=== PATIENT | female | born 1940 | race Caucasian/White ===

== ENCOUNTER 2017-05-14 15:28 | Emergency (ER) | payer MEDICARE, MEDICAID ==
[~2017-05-14] VITALS: Ht 147.3 cm; Wt 72.0 kg
[~2017-05-14 15:28] MED LIST: AMIODARONE200 MG OR; AMLODIPINE5 MG PO; AMOXICILLIN500 MG OR; ANTIVERT25 MG PO; ASPIRIN 81 LOW81 MG PO; ASPIRIN OR; ASPIRIN325 MG PO; ASPIRIN81 MG OR; BABY ASPIRIN81 MG OR; BENICAR40 MG OR; CEPHALEXIN500 MG PO; CIPRO500 MG OR; CLARITIN10 MG OR; CLONAZEPAM0.5 MG OR; COREG12.5 MG OR; COREG25 MG OR; COREG25 MG PO; COREG6.25 MG OR; COUMADIN2 MG OR; COUMADIN2 MG PO; DIGITEK0.125 MG OR; DILTIAZEM60 MG PO; DIOVAN160 MG OR; DIOVAN160 MG PO; ECOTRIN325 MG OR; EQ OMEPRAZOLE20 MG PO; FISH OIL1000 MG PO; FLEXERIL OR; FLEXERIL PO; FLEXERIL5 MG PO; FLUOXETINE20 MG OR; FLUOXETINE20 MG PO; FLUTICASONE50 MCG; JANTOVEN2 MG OR; JANTOVEN2 MG PO; JANTOVEN4 MG OR; KEFLEX500 MG OR; KLOR-CON M2020 MEQ PO; LASIX 40 MG TAB40 MG PO; LISINOPRIL20 MG OR; LOPRESSOR50 MG OR; LORTAB 10 PO; LORTAB 5 PO; MAREPA1000 MG OR; MECLIZINE25 MG PO; MEDDOSEPAK OR; METO50TA52 OR; NITRO-DUR0.4 MG/HR SL; NITROQUICK0.4 MG SL; NORCO1 TA1 PO; OMEPRAZOLE20 MG OR; OMEPRAZOLE20 MG PO; OXYBUTYNIN5 MG PO; PERCOCET 5/325M1 TAB OR; PLAVIX75 MG OR; PRILOSEC20 MG OR; PRILOSEC20 MG PO; PRILOSEC20 MG/CAP PO; PROZAC20 MG OR; PROZAC20 MG PO; PYRIDIUM200 MG PO; ROBITUSSIN AC OR; ROBITUSSIN AC10 ML PO; SIMVASTATIN40 MG OR; SIMVASTATIN40 MG PO; TRAZODONE50 MG OR; TYLENOL # 31 TA1 PO; ULTRAM50 M1 PO; ULTRAM50 MG PO; ZOCOR40 MG OR; ZOFRAN ODT4 MG OR; ZOFRAN ODT4 MG PO; ZPAK PO
[2017-05-14] MEDS ORDERED: AMITRIPTYLIN10 MG PO (16:14)
[2017-05-14] MEDS ORDERED: BAYER ASA325 MG PO (16:16)
[2017-05-14 16:58] LABS: HEMATOCRIT 38.9 % (37.0-47.0); HEMOGLOBIN 12.2 g/dl (12.0-16.0); IMMATURE GRANULOCYTES 0.2 % (0.0-1.0); MEAN CELL VOLUME 88.6 fL CALC (80.0-100.0); MEAN CORPUSCULAR HGB 27.8 pG CALC (26.0-32.0); MEAN CORPUSCULAR HGB CONC 31.4 g/L CALC (32.0-36.0); NEUT# 5.86 thou/uL (2.00-7.15); RED BLOOD COUNT 4.39 mill/uL (4.20-5.60); RED CELL DISTRI WIDTH 15.1 % (11.5-15.5)
[2017-05-14] MEDS ORDERED: ULTRAM50 M1 PO (17:06)
[2017-05-14] MEDS ORDERED: AMOXICILLIN500 MG PO (17:06)
[2017-05-14 17:26] VITALS: BP 182/81
[2017-05-14 17:31] LABS: ALBUMIN 3.9 g/dL (3.2-5.0); ALKALINE PHOSPHATASE 88 u/l (38-126); ANION GAP 17 (6-22 (CALC)); BILIRUBIN, TOTAL 0.2 mg/dL (0.0-1.4); BUN 15 mg/dL (8-23); BUN/CREATININE RATIO 20 (12-20 (CALC)); CALCIUM 9.1 mg/dL (8.4-10.2); CARBON DIOXIDE 23 mmol/l (22-30); CHLORIDE 107 mmol/l (95-108); CREATININE 0.7 mg/dL (0.5-1.0); GFR > 60 ML/MIN (>=60 (CALC)); GFR FOR AFR.AMER. > 60 ML/MIN (>=60 (CALC)); GLUCOSE 109 mg/dL (82-115); POTASSIUM 3.5 mmol/l (3.5-5.1); SGOT/AST 31 u/l (9-36); SGPT/ALT 34 u/l (11-66); SODIUM 142 mmol/l (137-146); TOTAL PROTEIN 6.7 g/dL (6.3-8.2)
== END 2017-05-14 17:46 | disposition home or self-care (01) ==
LOC: ED 15:28
PROVIDERS: Emergency Medicine
PROC: 0HQDXZZ Repair Right Lower Arm Skin, External Approach (ICD-10-PCS; principal; 2017-05-14)
DX: S13.9XXA Sprain of joints and ligaments of unspecified parts of neck, initial encounter (principal); S33.5XXA Sprain of ligaments of lumbar spine, initial encounter; S23.3XXA Sprain of ligaments of thoracic spine, initial encounter; S51.811A Laceration without foreign body of right forearm, initial encounter; I10 Essential (primary) hypertension; K21.9 Gastro-esophageal reflux disease without esophagitis; J44.9 Chronic obstructive pulmonary disease, unspecified; F41.9 Anxiety disorder, unspecified; I11.0 Hypertensive heart disease with heart failure; I50.9 Heart failure, unspecified; E78.5 Hyperlipidemia, unspecified; W18.30XA Fall on same level, unspecified, initial encounter; Y92.009 Unspecified place in unspecified non-institutional (private) residence as the place of occurrence of the external cause; Z95.0 Presence of cardiac pacemaker; Z95.5 Presence of coronary angioplasty implant and graft

== ENCOUNTER 2017-06-29 11:36 | Emergency (ER) | payer MEDICARE, MEDICAID ==
[~2017-06-29] VITALS: Ht 147.3 cm; Wt 68.0 kg
[~2017-06-29 11:36] MED LIST changes: +AMITRIPTYLIN10 MG PO; +AMOXICILLIN500 MG PO; +BAYER ASA325 MG PO
[2017-06-29] MEDS ORDERED: BACTRIM DS1 TAB PO (12:45)
[2017-06-29] MEDS ORDERED: DOXYCYC MONO100 M1 PO (12:48)
[2017-06-29 13:25] VITALS: BP 149/82
== END 2017-06-29 13:30 | disposition home or self-care (01) ==
LOC: ED 11:36
DX: L03.115 Cellulitis of right lower limb (principal); S81.001A Unspecified open wound, right knee, initial encounter; K21.9 Gastro-esophageal reflux disease without esophagitis; J44.9 Chronic obstructive pulmonary disease, unspecified; F41.9 Anxiety disorder, unspecified; I11.0 Hypertensive heart disease with heart failure; I50.9 Heart failure, unspecified; E78.5 Hyperlipidemia, unspecified; W19.XXXA Unspecified fall, initial encounter; Z95.5 Presence of coronary angioplasty implant and graft; Z95.0 Presence of cardiac pacemaker; Z91.81 History of falling

== ENCOUNTER 2018-02-25 22:15 | Emergency (ER) | payer MEDICARE ==
[~2018-02-25] VITALS: Ht 147.3 cm; Wt 62.2 kg
[~2018-02-25 22:15] MED LIST changes: +BACTRIM DS1 TAB PO; +DOXYCYC MONO100 M1 PO
[2018-02-25] MEDS ORDERED: ULTRAM50 M1 PO (22:28)
[2018-02-26 00:40] VITALS: BP 152/78
== END 2018-02-26 00:45 | disposition home or self-care (01) ==
LOC: ED 22:15
DX: S20.212A Contusion of left front wall of thorax, initial encounter (principal); W18.30XA Fall on same level, unspecified, initial encounter; Y93.9 Activity, unspecified; Y92.002 Bathroom of unspecified non-institutional (private) residence as the place of occurrence of the external cause; M85.88 Other specified disorders of bone density and structure, other site

== ENCOUNTER 2018-05-18 20:50 | Observation (INO) | payer MEDICARE ==
[~2018-05-18] VITALS: Ht 147.3 cm; Wt 69.0 kg
[2018-05-18 21:18] LABS: HEMATOCRIT 36.5 % (37.0-47.0); HEMOGLOBIN 12.1 g/dl (12.0-16.0); IMMATURE GRANULOCYTES 0.4 % (0.0-1.0); MEAN CELL VOLUME 84.5 fL CALC (80.0-100.0); MEAN CORPUSCULAR HGB CONC 33.2 g/L CALC (32.0-36.0); NEUT# 5.35 thou/uL (2.00-7.15); RED BLOOD COUNT 4.32 mill/uL (4.20-5.60); RED CELL DISTRI WIDTH 14.1 % (11.5-15.5)
[2018-05-18 21:40] LABS: ALKALINE PHOSPHATASE 120 u/l (38-126); BILIRUBIN, TOTAL 0.3 mg/dL (0.0-1.4); BUN 12 mg/dL (8-23); BUN/CREATININE RATIO 17 (12-20 (CALC)); CHLORIDE 102 mmol/l (95-108); CREATININE 0.7 mg/dL (0.5-1.0); GFR > 60 ML/MIN (>=60 (CALC)); GFR FOR AFR.AMER. > 60 ML/MIN (>=60 (CALC)); SGOT/AST 27 u/l (9-36); SGPT/ALT 31 u/l (11-66); SODIUM 142 mmol/l (137-146); TOTAL PROTEIN 7.2 g/dL (6.3-8.2)
[2018-05-18 21:44] LABS: ANION GAP 13 (6-22 (CALC)); CARBON DIOXIDE 30 mmol/l (22-30)
[2018-05-18 21:51] LABS: INTERNATIONAL NORMALIZED RATIO 2.2 RATIO (0.7-1.3); PROTHROMBIN TIME 25.3 SECONDS (9.0-12.5)
[2018-05-18 21:52] LABS: MYOGLOBIN 35 ng/mL (0 - 62)
[2018-05-18 22:13] LABS: URINE BILIRUBIN - DIPSTICK NEGATIVE (NEGATIVE); URINE BLOOD DIPSTICK MODERATE (NEGATIVE); URINE COLOR YELLOW; URINE GLUCOSE - DIPSTICK NEGATIVE (NEGATIVE); URINE KETONE NEGATIVE (NEGATIVE); URINE NITRITE - DIPSTICK NEGATIVE (Negative); URINE PH 5.5 (4.5-8.0); URINE PROTEIN - DIPSTICK NEGATIVE (NEG-TRACE); URINE UROBILINOGEN - DIPSTICK 0.2 E.U./dL (0.2)
[2018-05-18 22:14] LABS: URINE CLARITY CLOUDY; URINE LEUK ESTERASE LARGE (NEGATIVE)
[2018-05-18 22:19] LABS: URINE BACTERIA MANY hpf; URINE RBC 25-50 RBC/hpf (0-5); URINE SQUAMOUS EPITHELIAL CELL FEW EPI/hpf (0-FEW); URINE WBC TNTC WBC/hpf (0-5)
[2018-05-19] VITALS (8 sets, daily range): BP systolic 113–200; BP diastolic 60–82
[2018-05-19 06:26] LABS: BUN 12 mg/dL (8-23); BUN/CREATININE RATIO 16 (12-20 (CALC)); CARBON DIOXIDE 33 mmol/l (22-30); CHLORIDE 102 mmol/l (95-108); CREATININE 0.7 mg/dL (0.5-1.0); GFR > 60 ML/MIN (>=60 (CALC)); GFR FOR AFR.AMER. > 60 ML/MIN (>=60 (CALC)); SODIUM 141 mmol/l (137-146)
[2018-05-19 06:33] LABS: ANION GAP 10 (6-22 (CALC)); POTASSIUM 3.7 mmol/l (3.5-5.1)
[2018-05-20 03:54] VITALS: BP 116/67
[2018-05-20 04:47] LABS: HEMATOCRIT 34.2 % (37.0-47.0); HEMOGLOBIN 11.1 g/dl (12.0-16.0); IMMATURE GRANULOCYTES 0.3 % (0.0-1.0); MEAN CELL VOLUME 86.4 fL CALC (80.0-100.0); MEAN CORPUSCULAR HGB CONC 32.5 g/L CALC (32.0-36.0); NEUT# 3.3 thou/uL (2.00-7.15); RED BLOOD COUNT 3.96 mill/uL (4.20-5.60); RED CELL DISTRI WIDTH 14.6 % (11.5-15.5)
[2018-05-20 05:01] LABS: PROTHROMBIN TIME 22.1 SECONDS (9.0-12.5)
[2018-05-20 05:04] LABS: ANION GAP 12 (6-22 (CALC)); BUN 16 mg/dL (8-23); BUN/CREATININE RATIO 21 (12-20 (CALC)); CARBON DIOXIDE 27 mmol/l (22-30); CHLORIDE 105 mmol/l (95-108); CREATININE 0.8 mg/dL (0.5-1.0); GFR > 60 ML/MIN (>=60 (CALC)); GFR FOR AFR.AMER. > 60 ML/MIN (>=60 (CALC)); MAGNESIUM 1.6 mg/dL (1.6-2.3); POTASSIUM 3.4 mmol/l (3.5-5.1); SODIUM 141 mmol/l (137-146)
[2018-05-20 07:43] VITALS: BP 158/84; BP 165/84
[2018-05-20 11:00] VITALS: BP 136/72
[2018-05-20 12:43] VITALS: BP 125/61; BP 130/59; BP 136/55
[2018-05-20] MEDS ORDERED: KEFLEX500 M1 PO (14:19)
== END 2018-05-20 14:58 | disposition home or self-care (01) ==
LOC: ED 20:50 → ED-I 23:00 → ED 23:29 → MS2 23:30
PROVIDERS: Family Medicine; Nurse Practitioner Family; ADMIT Internal Medicine; ATTEND Internal Medicine
DX: N39.0 Urinary tract infection, site not specified (principal); I16.0 Hypertensive urgency; I10 Essential (primary) hypertension; E87.6 Hypokalemia; G93.49 Other encephalopathy; F32.9 Major depressive disorder, single episode, unspecified; K21.9 Gastro-esophageal reflux disease without esophagitis; I48.91 Unspecified atrial fibrillation; I25.10 Atherosclerotic heart disease of native coronary artery without angina pectoris; I42.9 Cardiomyopathy, unspecified; J44.9 Chronic obstructive pulmonary disease, unspecified; D63.8 Anemia in other chronic diseases classified elsewhere; B96.20 Unspecified Escherichia coli [E. coli] as the cause of diseases classified elsewhere; Z95.0 Presence of cardiac pacemaker; Z79.01 Long term (current) use of anticoagulants; Z91.81 History of falling; E78.5 Hyperlipidemia, unspecified; Z95.5 Presence of coronary angioplasty implant and graft; Z96.641 Presence of right artificial hip joint

== ENCOUNTER 2018-05-22 17:49 | Inpatient (IN) | payer MEDICARE ==
[~2018-05-22] VITALS: Ht 147.3 cm; Wt 70.0 kg
[~2018-05-22 17:49] MED LIST changes: +KEFLEX500 M1 PO
[2018-05-22] MEDS ORDERED: CIPROFLOXACN500 MG PO (18:56)
[2018-05-22] MEDS ORDERED: BENADRYL 50MG C50 MG PO (18:56)
[2018-05-22] MEDS ORDERED: MEDDOSEPAK PO (18:56)
[2018-05-22] MEDS ORDERED: PEPCID20 MG PO (18:56)
[2018-05-22 19:36] LABS: HEMATOCRIT 38.2 % (37.0-47.0); HEMOGLOBIN 12.3 g/dl (12.0-16.0); IMMATURE GRANULOCYTES 0.4 % (0.0-1.0); MEAN CELL VOLUME 85.5 fL CALC (80.0-100.0); MEAN CORPUSCULAR HGB 27.5 pG CALC (26.0-32.0); MEAN CORPUSCULAR HGB CONC 32.2 g/L CALC (32.0-36.0); NEUT# 11.41 thou/uL (2.00-7.15); RED BLOOD COUNT 4.47 mill/uL (4.20-5.60); RED CELL DISTRI WIDTH 14.4 % (11.5-15.5)
[2018-05-22 19:51] LABS: ALBUMIN 4.2 g/dL (3.2-5.0); ALKALINE PHOSPHATASE 122 u/l (38-126); ANION GAP 11 (6-22 (CALC)); BILIRUBIN, TOTAL 0.5 mg/dL (0.0-1.4); BUN 17 mg/dL (8-23); BUN/CREATININE RATIO 22 (12-20 (CALC)); CARBON DIOXIDE 29 mmol/l (22-30); CHLORIDE 102 mmol/l (95-108); CREATININE 0.8 mg/dL (0.5-1.0); GFR > 60 ML/MIN (>=60 (CALC)); GFR FOR AFR.AMER. > 60 ML/MIN (>=60 (CALC)); POTASSIUM 3.4 mmol/l (3.5-5.1); SGOT/AST 28 u/l (9-36); SGPT/ALT 34 u/l (11-66); SODIUM 139 mmol/l (137-146); TOTAL PROTEIN 7.5 g/dL (6.3-8.2)
[2018-05-22 19:56] LABS: ACT PARTIAL THROMBO TIME 33.6 SECONDS (20.0-32.5); INTERNATIONAL NORMALIZED RATIO 1.6 RATIO (0.7-1.3); PROTHROMBIN TIME 18.5 SECONDS (9.0-12.5)
[2018-05-22 20:03] LABS: MYOGLOBIN 87 ng/mL (0 - 62)
[2018-05-22 20:58] LABS: URINE BILIRUBIN - DIPSTICK NEGATIVE (NEGATIVE); URINE BLOOD DIPSTICK SMALL (NEGATIVE); URINE COLOR YELLOW; URINE GLUCOSE - DIPSTICK NEGATIVE (NEGATIVE); URINE KETONE NEGATIVE (NEGATIVE); URINE LEUK ESTERASE NEGATIVE (Negative); URINE NITRITE - DIPSTICK NEGATIVE (Negative); URINE PH 5.5 (4.5-8.0); URINE PROTEIN - DIPSTICK NEGATIVE (NEG-TRACE); URINE SPECIFIC GRAVITY <=1.005; URINE UROBILINOGEN - DIPSTICK 0.2 E.U./dL (0.2)
[2018-05-22 21:00] LABS: URINE CLARITY CLEAR
[2018-05-22 21:07] LABS: URINE SQUAMOUS EPITHELIAL CELL FEW EPI/hpf (0-FEW); URINE WBC 0-2 WBC/hpf (0-5)
[2018-05-22 22:20] VITALS: BP 168/71
[2018-05-23] VITALS (8 sets, daily range): BP systolic 132–171; BP diastolic 60–87
[2018-05-23 05:06] LABS: HEMATOCRIT 36.8 % (37.0-47.0); HEMOGLOBIN 12.1 g/dl (12.0-16.0); MEAN CELL VOLUME 84.2 fL CALC (80.0-100.0); MEAN CORPUSCULAR HGB 27.7 pG CALC (26.0-32.0); MEAN CORPUSCULAR HGB CONC 32.9 g/L CALC (32.0-36.0); RED BLOOD COUNT 4.37 mill/uL (4.20-5.60); RED CELL DISTRI WIDTH 14.3 % (11.5-15.5)
[2018-05-23 05:16] LABS: ANION GAP 14 (6-22 (CALC)); BUN 15 mg/dL (8-23); BUN/CREATININE RATIO 22 (12-20 (CALC)); CARBON DIOXIDE 24 mmol/l (22-30); CHLORIDE 105 mmol/l (95-108); CREATININE 0.7 mg/dL (0.5-1.0); GFR > 60 ML/MIN (>=60 (CALC)); GFR FOR AFR.AMER. > 60 ML/MIN (>=60 (CALC)); POTASSIUM 3.4 mmol/l (3.5-5.1); SODIUM 139 mmol/l (137-146)
[2018-05-24 04:09] VITALS: BP 156/76
[2018-05-24 05:36] LABS: HEMATOCRIT 32.7 % (37.0-47.0); HEMOGLOBIN 10.5 g/dl (12.0-16.0); IMMATURE GRANULOCYTES 1.1 % (0.0-1.0); MEAN CELL VOLUME 87.7 fL CALC (80.0-100.0); MEAN CORPUSCULAR HGB 28.2 pG CALC (26.0-32.0); MEAN CORPUSCULAR HGB CONC 32.1 g/L CALC (32.0-36.0); NEUT# 18.8 thou/uL (2.00-7.15); RED BLOOD COUNT 3.73 mill/uL (4.20-5.60); RED CELL DISTRI WIDTH 14.9 % (11.5-15.5)
[2018-05-24 05:40] LABS: ANION GAP 12 (6-22 (CALC)); BUN 16 mg/dL (8-23); BUN/CREATININE RATIO 22 (12-20 (CALC)); CARBON DIOXIDE 24 mmol/l (22-30); CHLORIDE 110 mmol/l (95-108); CREATININE 0.7 mg/dL (0.5-1.0); GFR > 60 ML/MIN (>=60 (CALC)); GFR FOR AFR.AMER. > 60 ML/MIN (>=60 (CALC)); MAGNESIUM 1.7 mg/dL (1.6-2.3); POTASSIUM 3.9 mmol/l (3.5-5.1); SODIUM 142 mmol/l (137-146)
[2018-05-24 07:00] LABS: INTERNATIONAL NORMALIZED RATIO 1.5 RATIO (0.7-1.3); PROTHROMBIN TIME 16.6 SECONDS (9.0-12.5)
[2018-05-24 08:00] VITALS: BP 162/76
[2018-05-24 12:30] VITALS: BP 161/67
[2018-05-24 15:56] VITALS: BP 152/86
[2018-05-24 18:55] VITALS: BP 170/66
[2018-05-24 22:29] VITALS: BP 152/53
[2018-05-25 00:35] VITALS: BP 174/87
[2018-05-25 03:56] VITALS: BP 138/72
[2018-05-25 06:11] LABS: HEMATOCRIT 32.3 % (37.0-47.0); HEMOGLOBIN 10.6 g/dl (12.0-16.0); MEAN CORPUSCULAR HGB 27.9 pG CALC (26.0-32.0); MEAN CORPUSCULAR HGB CONC 32.8 g/L CALC (32.0-36.0); RED BLOOD COUNT 3.8 mill/uL (4.20-5.60); RED CELL DISTRI WIDTH 14.9 % (11.5-15.5)
[2018-05-25 06:29] LABS: BUN 13 mg/dL (8-23); BUN/CREATININE RATIO 19 (12-20 (CALC)); CARBON DIOXIDE 29 mmol/l (22-30); CHLORIDE 101 mmol/l (95-108); CREATININE 0.7 mg/dL (0.5-1.0); GFR > 60 ML/MIN (>=60 (CALC)); GFR FOR AFR.AMER. > 60 ML/MIN (>=60 (CALC)); SODIUM 139 mmol/l (137-146)
[2018-05-25 06:30] LABS: ANION GAP 12 (6-22 (CALC))
[2018-05-25 06:33] LABS: INTERNATIONAL NORMALIZED RATIO 1.6 RATIO (0.7-1.3); PROTHROMBIN TIME 17.7 SECONDS (9.0-12.5)
[2018-05-25 08:20] VITALS: BP 153/68
[2018-05-25 11:21] VITALS: BP 145/72
[2018-05-25] MEDS ORDERED: CIPROFLOXACN500 MG PO (12:44)
[2018-05-25] MEDS ORDERED: QUETIAPINE FUMA25 MG PO (12:44)
== END 2018-05-25 14:30 | disposition home health service (06) | DRG 689 ==
LOC: ED 17:49 → ED-I 21:08 → ED 21:30 → MS2 21:31
PROVIDERS: Nurse Practitioner Family; ADMIT Internal Medicine; ATTEND Internal Medicine
DX: N39.0 Urinary tract infection, site not specified (principal); G93.49 Other encephalopathy; I42.9 Cardiomyopathy, unspecified; I10 Essential (primary) hypertension; E87.6 Hypokalemia; I48.2 Chronic atrial fibrillation; F03.90 Unspecified dementia, unspecified severity, without behavioral disturbance, psychotic disturbance, mood disturbance, and anxiety; L50.0 Allergic urticaria; T36.1X5A Adverse effect of cephalosporins and other beta-lactam antibiotics, initial encounter; F32.9 Major depressive disorder, single episode, unspecified; K21.9 Gastro-esophageal reflux disease without esophagitis; E78.5 Hyperlipidemia, unspecified; D63.8 Anemia in other chronic diseases classified elsewhere; F41.9 Anxiety disorder, unspecified; I25.10 Atherosclerotic heart disease of native coronary artery without angina pectoris; H91.90 Unspecified hearing loss, unspecified ear; B96.20 Unspecified Escherichia coli [E. coli] as the cause of diseases classified elsewhere; Z86.73 Personal history of transient ischemic attack (TIA), and cerebral infarction without residual deficits; Z79.01 Long term (current) use of anticoagulants; Z91.81 History of falling; Z95.0 Presence of cardiac pacemaker; Z95.5 Presence of coronary angioplasty implant and graft
CPT/HCPCS: J2060

== ENCOUNTER 2018-06-02 20:45 | Emergency (ER) | payer MEDICARE ==
[~2018-06-02] VITALS: Ht 147.3 cm; Wt 70.0 kg
[~2018-06-02 20:45] MED LIST changes: +BENADRYL 50MG C50 MG PO; +CIPROFLOXACN500 MG PO; +MEDDOSEPAK PO; +PEPCID20 MG PO; +QUETIAPINE FUMA25 MG PO
[2018-06-02 21:44] LABS: HEMATOCRIT 35.7 % (37.0-47.0); HEMOGLOBIN 11.6 g/dl (12.0-16.0); IMMATURE GRANULOCYTES 0.4 % (0.0-1.0); MEAN CELL VOLUME 85.4 fL CALC (80.0-100.0); MEAN CORPUSCULAR HGB 27.8 pG CALC (26.0-32.0); MEAN CORPUSCULAR HGB CONC 32.5 g/L CALC (32.0-36.0); NEUT# 2.53 thou/uL (2.00-7.15); RED BLOOD COUNT 4.18 mill/uL (4.20-5.60); RED CELL DISTRI WIDTH 14.5 % (11.5-15.5)
[2018-06-02 21:57] LABS: ALKALINE PHOSPHATASE 115 u/l (38-126); ANION GAP 11 (6-22 (CALC)); BILIRUBIN, TOTAL 0.2 mg/dL (0.0-1.4); BUN 13 mg/dL (8-23); BUN/CREATININE RATIO 13 (12-20 (CALC)); CARBON DIOXIDE 31 mmol/l (22-30); CHLORIDE 100 mmol/l (95-108); GFR 53 ML/MIN (>=60 (CALC)); GFR FOR AFR.AMER. > 60 ML/MIN (>=60 (CALC)); POTASSIUM 3.6 mmol/l (3.5-5.1); SGOT/AST 36 u/l (9-36); SGPT/ALT 40 u/l (11-66); SODIUM 139 mmol/l (137-146); TOTAL PROTEIN 7.5 g/dL (6.3-8.2)
[2018-06-02 22:00] LABS: INTERNATIONAL NORMALIZED RATIO 1.6 RATIO (0.7-1.3); PROTHROMBIN TIME 18.5 SECONDS (9.0-12.5)
--- NOTE | 2018-06-02 22:08 | NUR ---
BREATHING TREATMENT GIVEN. BREATHING TECH. FOR GOOD DEPOSITION TO THE LUNGS.
[2018-06-02] MEDS ORDERED: VENTOLIN HFA IN (22:48)
[2018-06-02] MEDS ORDERED: PREDNISONE10 MG PO (22:48)
[2018-06-02 23:20] VITALS: BP 175/79
== END 2018-06-02 23:20 | disposition home or self-care (01) ==
LOC: ED 20:45
PROVIDERS: Family Medicine
DX: J98.01 Acute bronchospasm (principal); I10 Essential (primary) hypertension; I48.91 Unspecified atrial fibrillation; F32.9 Major depressive disorder, single episode, unspecified; K21.9 Gastro-esophageal reflux disease without esophagitis; E78.00 Pure hypercholesterolemia, unspecified; Z86.73 Personal history of transient ischemic attack (TIA), and cerebral infarction without residual deficits; Z95.0 Presence of cardiac pacemaker; R06.02 Shortness of breath

== ENCOUNTER 2018-07-25 18:06 | Emergency (ER) | payer MEDICARE ==
[~2018-07-25] VITALS: Ht 147.3 cm; Wt 75.0 kg
[~2018-07-25 18:06] MED LIST changes: +PREDNISONE10 MG PO; +VENTOLIN HFA IN
[2018-07-25 19:53] LABS: HEMATOCRIT 36.7 % (37.0-47.0); HEMOGLOBIN 12.1 g/dl (12.0-16.0); IMMATURE GRANULOCYTES 0.2 % (0.0-5.0); MEAN CELL VOLUME 84.4 fL CALC (80.0-100.0); MEAN CORPUSCULAR HGB 27.8 pG CALC (26.0-32.0); NEUT# 3.03 thou/uL (2.00-7.15); RED BLOOD COUNT 4.35 mill/uL (4.20-5.60)
[2018-07-25 20:01] LABS: ALBUMIN 3.9 g/dL (3.2-5.0); ALKALINE PHOSPHATASE 120 u/l (38-126); ANION GAP 14 (6-22 (CALC)); BILIRUBIN, TOTAL 0.2 mg/dL (0.0-1.4); BUN 13 mg/dL (8-23); BUN/CREATININE RATIO 15 (12-20 (CALC)); CARBON DIOXIDE 26 mmol/l (22-30); CHLORIDE 104 mmol/l (95-108); CREATININE 0.8 mg/dL (0.5-1.0); GFR > 60 ML/MIN (>=60 (CALC)); GFR FOR AFR.AMER. > 60 ML/MIN (>=60 (CALC)); POTASSIUM 3.3 mmol/l (3.5-5.1); SGOT/AST 29 u/l (9-36); SGPT/ALT 30 u/l (11-66); SODIUM 141 mmol/l (137-146); TOTAL PROTEIN 6.8 g/dL (6.3-8.2)
[2018-07-25 21:15] LABS: URINE BILIRUBIN - DIPSTICK NEGATIVE (NEGATIVE); URINE BLOOD DIPSTICK SMALL (NEGATIVE); URINE CLARITY CLEAR; URINE COLOR YELLOW; URINE GLUCOSE - DIPSTICK NEGATIVE (NEGATIVE); URINE KETONE NEGATIVE (NEGATIVE); URINE LEUK ESTERASE NEGATIVE (NEGATIVE); URINE NITRITE - DIPSTICK NEGATIVE (Negative); URINE PROTEIN - DIPSTICK NEGATIVE (NEG-TRACE); URINE SPECIFIC GRAVITY <=1.005; URINE UROBILINOGEN - DIPSTICK 0.2 E.U./dL (0.2)
[2018-07-25 21:16] LABS: URINE SQUAMOUS EPITHELIAL CELL FEW EPI/hpf (0-FEW); URINE WBC 0-2 WBC/hpf (0-5)
[2018-07-25] MEDS ORDERED: CIPROFLOXACN500 MG PO (21:37)
[2018-07-25 23:11] VITALS: BP 151/84
== END 2018-07-25 23:30 | disposition home or self-care (01) ==
LOC: ED 18:06
PROVIDERS: Emergency Medicine
DX: N39.0 Urinary tract infection, site not specified (principal); I10 Essential (primary) hypertension; I48.91 Unspecified atrial fibrillation; F32.9 Major depressive disorder, single episode, unspecified; K21.9 Gastro-esophageal reflux disease without esophagitis; Z86.73 Personal history of transient ischemic attack (TIA), and cerebral infarction without residual deficits; Z95.0 Presence of cardiac pacemaker

== ENCOUNTER 2018-08-31 18:20 | Emergency (ER) | payer MEDICARE ==
[~2018-08-31] VITALS: Ht 147.3 cm; Wt 66.0 kg
[2018-08-31] MEDS ORDERED: ZOLOFT50 MG PO (20:49)
[2018-08-31 21:50] VITALS: BP 177/68
== END 2018-08-31 21:50 | disposition home or self-care (01) ==
LOC: ED 18:20
DX: S40.012A Contusion of left shoulder, initial encounter (principal); S50.312A Abrasion of left elbow, initial encounter; I10 Essential (primary) hypertension; I48.91 Unspecified atrial fibrillation; F03.90 Unspecified dementia, unspecified severity, without behavioral disturbance, psychotic disturbance, mood disturbance, and anxiety; K21.9 Gastro-esophageal reflux disease without esophagitis; F32.9 Major depressive disorder, single episode, unspecified; W01.0XXA Fall on same level from slipping, tripping and stumbling without subsequent striking against object, initial encounter; Y92.009 Unspecified place in unspecified non-institutional (private) residence as the place of occurrence of the external cause; Z95.0 Presence of cardiac pacemaker

== ENCOUNTER → 2019-01-21 | Outpatient (REF) | payer MEDICARE ==
[~2019-01-21] MED LIST changes: +ZOLOFT50 MG PO
[2019-01-21 16:30] LABS: HEMATOCRIT 35.6 % (37.0-47.0); HEMOGLOBIN 11.4 g/dl (12.0-16.0); IMMATURE GRANULOCYTES 0.3 % (0.0-5.0); MEAN CELL VOLUME 85.2 fL CALC (80.0-100.0); MEAN CORPUSCULAR HGB 27.3 pG CALC (26.0-32.0); NEUT# 5.04 thou/uL (2.00-7.15); RED BLOOD COUNT 4.18 mill/uL (4.20-5.60); RED CELL DISTRI WIDTH 14.5 % (11.5-15.5)
[2019-01-21 16:54] LABS: ALBUMIN 3.8 g/dL (3.2-5.0); BILIRUBIN, TOTAL 0.2 mg/dL (0.0-1.4); CREATININE 1.6 mg/dL (0.5-1.0); POTASSIUM 3.2 mmol/l (3.5-5.1); TOTAL PROTEIN 6.4 g/dL (6.3-8.2)
[2019-01-21 17:24] LABS: TSH, 3RD GENERATION 4.07 uIU/mL (0.47 - 4.68)
== END | disposition home or self-care (01) ==
LOC: LAB 15:18
PROVIDERS: ATTEND Internal Medicine
DX: I10 Essential (primary) hypertension (principal); R19.7 Diarrhea, unspecified

== ENCOUNTER → 2019-01-22 | Outpatient (REF) | payer MEDICARE ==
[2019-01-22 11:01] LABS: URINE BILIRUBIN - DIPSTICK NEGATIVE (NEGATIVE); URINE BLOOD DIPSTICK TRACE-INTACT (NEGATIVE); URINE COLOR YELLOW; URINE GLUCOSE - DIPSTICK NEGATIVE (NEGATIVE); URINE KETONE NEGATIVE (NEGATIVE); URINE LEUK ESTERASE MODERATE (Negative); URINE NITRITE - DIPSTICK NEGATIVE (Negative); URINE PROTEIN - DIPSTICK NEGATIVE (NEG-TRACE); URINE SPECIFIC GRAVITY >=1.030; URINE UROBILINOGEN - DIPSTICK 0.2 E.U./dL (0.2)
[2019-01-22 11:08] LABS: URINE CLARITY CLOUDY
[2019-01-22 11:09] LABS: URINE BACTERIA MANY hpf; URINE EPITHELIAL CELLS FEW EPI/hpf (0-FEW)
== END | disposition home or self-care (01) ==
LOC: LABSPEC 10:18
PROVIDERS: ATTEND Internal Medicine
DX: R19.7 Diarrhea, unspecified (principal); I10 Essential (primary) hypertension

== ENCOUNTER 2020-08-05 20:13 | Emergency (ER) | payer MEDICARE ==
[~2020-08-05] VITALS: Ht 147.3 cm; Wt 66.8 kg
[2020-08-05] MEDS ORDERED: MICRO-K10 MEQ PO (20:36)
[2020-08-05] MEDS ORDERED: SLOW-MAG PO (20:36)
[2020-08-05] MEDS ORDERED: BUSPIRONE7.5 MG PO (20:37)
[2020-08-05 21:46] LABS: HEMATOCRIT 36.1 % (37.0-47.0); HEMOGLOBIN 11.2 g/dl (12.0-16.0); IMMATURE GRANULOCYTES 0.3 % (0.0-5.0); MEAN CELL VOLUME 86.8 fL CALC (80.0-100.0); MEAN CORPUSCULAR HGB 26.9 pG CALC (26.0-32.0); NEUT# 3.22 thou/uL (2.00-7.15); RED BLOOD COUNT 4.16 mill/uL (4.20-5.60); RED CELL DISTRI WIDTH 14.6 % (11.5-15.5)
[2020-08-05 21:52] LABS: URINE BILIRUBIN - DIPSTICK NEGATIVE (NEGATIVE); URINE BLOOD DIPSTICK SMALL (NEGATIVE); URINE COLOR YELLOW; URINE GLUCOSE - DIPSTICK NEGATIVE (NEGATIVE); URINE KETONE NEGATIVE (NEGATIVE); URINE NITRITE - DIPSTICK NEGATIVE (Negative); URINE PROTEIN - DIPSTICK NEGATIVE (NEG-TRACE); URINE SPECIFIC GRAVITY 1.025; URINE UROBILINOGEN - DIPSTICK 0.2 E.U./dL (0.2)
[2020-08-05 21:53] LABS: URINE LEUK ESTERASE SMALL (NEGATIVE)
[2020-08-05 22:00] LABS: URINE BACTERIA MODERATE hpf; URINE SQUAMOUS EPITHELIAL CELL FEW EPI/hpf (0-FEW)
[2020-08-05 22:01] LABS: INTERNATIONAL NORMALIZED RATIO 2.3 RATIO (0.7-1.3); PROTHROMBIN TIME 22.1 SECONDS (9.0-12.5)
[2020-08-05 22:06] LABS: ALBUMIN 3.7 g/dL (3.2-5.0); ALKALINE PHOSPHATASE 95 u/l (38-126); BILIRUBIN, TOTAL 0.3 mg/dL (0.0-1.4); BUN 19 mg/dL (8-23); BUN/CREATININE RATIO 24 (12-20 (CALC)); CHLORIDE 108 mmol/l (95-108); CREATININE 0.8 mg/dL (0.5-1.0); GFR > 60 ML/MIN (>=60 (CALC)); GFR FOR AFR.AMER. > 60 ML/MIN (>=60 (CALC)); POTASSIUM 3.6 mmol/l (3.5-5.1); SGOT/AST 26 u/l (9-36); SODIUM 139 mmol/l (137-146); TOTAL PROTEIN 6.4 g/dL (6.3-8.2)
[2020-08-05 22:07] LABS: ANION GAP 12 (6-22 (CALC)); CARBON DIOXIDE 23 mmol/l (22-30)
[2020-08-05 22:17] LABS: MYOGLOBIN 26 ng/mL (0 - 62)
[2020-08-05 22:35] LABS: TSH, 3RD GENERATION 5.57 uIU/mL (0.47 - 4.68)
[2020-08-05] MEDS ORDERED: BACTRIM DS1 TAB PO ×2 (22:39)
[2020-08-05 23:18] VITALS: BP 172/77
== END 2020-08-06 01:12 | disposition home or self-care (01) ==
LOC: ED 20:13
PROVIDERS: Family Medicine
DX: N39.0 Urinary tract infection, site not specified (principal); G93.49 Other encephalopathy; I10 Essential (primary) hypertension; I48.91 Unspecified atrial fibrillation; B96.20 Unspecified Escherichia coli [E. coli] as the cause of diseases classified elsewhere; Z95.0 Presence of cardiac pacemaker; Z86.73 Personal history of transient ischemic attack (TIA), and cerebral infarction without residual deficits; Z20.828 Contact with and (suspected) exposure to other viral communicable diseases

== ENCOUNTER 2020-08-13 19:40 | Emergency (ER) | payer MEDICARE ==
[~2020-08-13] VITALS: Ht 147.3 cm; Wt 65.9 kg
[~2020-08-13 19:40] MED LIST changes: +BUSPIRONE7.5 MG PO; +MICRO-K10 MEQ PO; +SLOW-MAG PO
[2020-08-14 00:40] VITALS: BP 172/73
== END 2020-08-14 01:01 ==
LOC: ED 19:40
DX: S12.200A Unspecified displaced fracture of third cervical vertebra, initial encounter for closed fracture (principal); S00.83XA Contusion of other part of head, initial encounter; S80.211A Abrasion, right knee, initial encounter; Z79.01 Long term (current) use of anticoagulants; I10 Essential (primary) hypertension; I48.91 Unspecified atrial fibrillation; F03.90 Unspecified dementia, unspecified severity, without behavioral disturbance, psychotic disturbance, mood disturbance, and anxiety; Z86.73 Personal history of transient ischemic attack (TIA), and cerebral infarction without residual deficits; Z95.0 Presence of cardiac pacemaker; W18.30XA Fall on same level, unspecified, initial encounter; Y92.003 Bedroom of unspecified non-institutional (private) residence as the place of occurrence of the external cause
CPT/HCPCS: J2060

== ENCOUNTER 2020-09-18 10:00 | Emergency (ER) | payer MEDICARE ==
[~2020-09-18] VITALS: Ht 147.3 cm; Wt 67.6 kg
[2020-09-18] MEDS ORDERED: LINZESS72 MCG PO (10:39)
[2020-09-18] MEDS ORDERED: PRE-NATAL PO (10:40)
[2020-09-18] MEDS ORDERED: COQ10100 MG PO (10:40)
[2020-09-18] MEDS ORDERED: HEARTBURN RELIE20 MG PO (10:41)
[2020-09-18] MEDS ORDERED: AMLODIPINE BESYL5 MG PO (10:41)
[2020-09-18 10:42] LABS: HEMATOCRIT 36.5 % (37.0-47.0); HEMOGLOBIN 11.7 g/dl (12.0-16.0); IMMATURE GRANULOCYTES 0.3 % (0.0-5.0); MEAN CELL VOLUME 86.7 fL CALC (80.0-100.0); MEAN CORPUSCULAR HGB 27.8 pG CALC (26.0-32.0); MEAN CORPUSCULAR HGB CONC 32.1 g/dL CAL (32.0-36.0); NEUT# 4.83 thou/uL (2.00-7.15); RED BLOOD COUNT 4.21 mill/uL (4.20-5.60); RED CELL DISTRI WIDTH 14.5 % (11.5-15.5)
[2020-09-18] MEDS ORDERED: [UNRECOGNIZED DRUG - OTHER] PO (10:43)
[2020-09-18] MEDS ORDERED: LEVOTHYROXIN125 MC1 PO (10:44)
[2020-09-18] MEDS ORDERED: METFORMIN500 M2 PO (10:44)
[2020-09-18] MEDS ORDERED: ATORVASTATIN CA10 MG PO (10:44)
[2020-09-18] MEDS ORDERED: APPLE CIDER PO (10:45)
[2020-09-18 10:57] LABS: ACT PARTIAL THROMBO TIME 32.3 SECONDS (20.0-32.5); INTERNATIONAL NORMALIZED RATIO 2.2 RATIO (0.7-1.3); PROTHROMBIN TIME 21.2 SECONDS (9.0-12.5)
[2020-09-18 11:04] LABS: ALBUMIN 3.9 g/dL (3.2-5.0); ALKALINE PHOSPHATASE 86 u/l (38-126); ANION GAP 13 (6-22 (CALC)); BILIRUBIN, TOTAL 0.3 mg/dL (0.0-1.4); BUN 16 mg/dL (8-23); BUN/CREATININE RATIO 18 (12-20 (CALC)); CARBON DIOXIDE 21 mmol/l (22-30); CHLORIDE 108 mmol/l (95-108); CREATININE 0.9 mg/dL (0.5-1.0); GFR 60 ML/MIN (>=60 (CALC)); GFR FOR AFR.AMER. > 60 ML/MIN (>=60 (CALC)); SGOT/AST 30 u/l (9-36); SODIUM 138 mmol/l (137-146); TOTAL PROTEIN 6.7 g/dL (6.3-8.2)
[2020-09-18 11:51] VITALS: BP 165/92
== END 2020-09-18 11:54 | disposition home or self-care (01) ==
LOC: ED 10:00
DX: S00.83XA Contusion of other part of head, initial encounter (principal); S70.01XA Contusion of right hip, initial encounter; S80.211A Abrasion, right knee, initial encounter; F03.90 Unspecified dementia, unspecified severity, without behavioral disturbance, psychotic disturbance, mood disturbance, and anxiety; I10 Essential (primary) hypertension; I48.91 Unspecified atrial fibrillation; K21.9 Gastro-esophageal reflux disease without esophagitis; W01.0XXA Fall on same level from slipping, tripping and stumbling without subsequent striking against object, initial encounter; Y92.009 Unspecified place in unspecified non-institutional (private) residence as the place of occurrence of the external cause; Z79.01 Long term (current) use of anticoagulants; Z95.0 Presence of cardiac pacemaker; Z86.73 Personal history of transient ischemic attack (TIA), and cerebral infarction without residual deficits

== ENCOUNTER 2021-04-23 14:33 | Observation (INO) | payer MEDICARE ==
[~2021-04-23] VITALS: Ht 147.3 cm; Wt 66.0 kg
[~2021-04-23 14:33] MED LIST changes: +AMLODIPINE BESYL5 MG PO; +APPLE CIDER PO; +ATORVASTATIN CA10 MG PO; +COQ10100 MG PO; +HEARTBURN RELIE20 MG PO; +LEVOTHYROXIN125 MC1 PO; +LINZESS72 MCG PO; +METFORMIN500 M2 PO; +PRE-NATAL PO; +[UNRECOGNIZED DRUG - OTHER] PO
--- NOTE | 2021-04-23 14:55 | NUR ---
WHEELED TO ROOM STAND PIVOT FULL ASSIST
--- NOTE | 2021-04-23 15:30 | NUR ---
NO ISSUES AT THIS TIME.
[2021-04-23 15:34] LABS: URINE BILIRUBIN - DIPSTICK NEGATIVE (NEGATIVE); URINE BLOOD DIPSTICK MODERATE (NEGATIVE); URINE COLOR YELLOW; URINE GLUCOSE - DIPSTICK NEGATIVE (NEGATIVE); URINE KETONE NEGATIVE (NEGATIVE); URINE LEUK ESTERASE LARGE (NEGATIVE); URINE NITRITE - DIPSTICK POSITIVE (Negative); URINE PROTEIN - DIPSTICK 30 mg/dL (NEG-TRACE); URINE UROBILINOGEN - DIPSTICK 0.2 E.U./dL (0.2)
[2021-04-23 15:39] LABS: HEMOGLOBIN 11.1 g/dl (12.0-16.0); IMMATURE GRANULOCYTES 0.4 % (0.0-5.0); MEAN CELL VOLUME 84.7 fL CALC (80.0-100.0); MEAN CORPUSCULAR HGB 26.1 pG CALC (26.0-32.0); MEAN CORPUSCULAR HGB CONC 30.8 g/dL CAL (32.0-36.0); NEUT# 2.36 thou/uL (2.00-7.15); RED BLOOD COUNT 4.25 mill/uL (4.20-5.60); RED CELL DISTRI WIDTH 13.6 % (11.5-15.5)
[2021-04-23 15:43] LABS: URINE BACTERIA MODERATE hpf; URINE SQUAMOUS EPITHELIAL CELL FEW EPI/hpf (0-FEW); URINE WBC >100 WBC/hpf (0-5)
[2021-04-23 15:55] LABS: ALBUMIN 3.7 g/dL (3.2-5.0); ALKALINE PHOSPHATASE 73 u/l (38-126); BILIRUBIN, TOTAL 0.3 mg/dL (0.0-1.4); BUN 16 mg/dL (8-23); BUN/CREATININE RATIO 17 (12-20 (CALC)); CHLORIDE 102 mmol/l (95-108); GFR 53 ML/MIN (>=60 (CALC)); GFR FOR AFR.AMER. > 60 ML/MIN (>=60 (CALC)); LIPASE 176 u/l (23-300); MAGNESIUM 1.8 mg/dL (1.6-2.3); POTASSIUM 3.2 mmol/l (3.5-5.1); SGOT/AST 26 u/l (9-36); SODIUM 136 mmol/l (137-146); TOTAL PROTEIN 7.1 g/dL (6.3-8.2)
[2021-04-23 15:58] LABS: ANION GAP 10 (6-22 (CALC)); CARBON DIOXIDE 27 mmol/l (22-30)
--- NOTE | 2021-04-23 16:15 | NUR ---
NO DISTRESS NOTED AT THIS TIME.
[2021-04-23 17:12] LABS: ACT PARTIAL THROMBO TIME 35.7 SECONDS (20.0-32.5); INTERNATIONAL NORMALIZED RATIO 2.2 RATIO (0.7-1.3); PROTHROMBIN TIME 22.4 SECONDS (9.0-12.5)
--- NOTE | 2021-04-23 17:30 | NUR ---
PT PULLED IV AND IS TRYING TO CLIMB OUT OF BED.
--- NOTE | 2021-04-23 18:32 | NUR ---
SITTER NOW WITH PATIENT.
--- NOTE | 2021-04-23 18:59 | NUR ---
SITTER AT BEDSIDE. PT CONTINUES TO TRY GET OUT OF BED.
--- NOTE | 2021-04-23 20:44 | NUR ---
FAMILY AT BEDSIDE
[2021-04-23] MEDS ORDERED: BUSPIRONE HYDR7.5 MG PO (20:57)
[2021-04-23] MEDS ORDERED: DIOVAN160 MG PO (20:58)
[2021-04-23] MEDS ORDERED: CARVEDILOL25 MG PO (20:58)
[2021-04-23] MEDS ORDERED: K-TABS10 MEQ PO (20:59)
[2021-04-23] MEDS ORDERED: OMEPRAZOLE DR40 MG PO (21:00)
[2021-04-23] MEDS ORDERED: QUETIAPINE FUMA25 MG PO (21:01)
[2021-04-23] MEDS ORDERED: WARFARIN2 MG PO (21:01)
[2021-04-23] MEDS ORDERED: SERTRALINE50 MG PO (21:02)
--- NOTE | 2021-04-23 21:48 | NUR ---
CONSTANTLY MOVING IN BED.
--- NOTE | 2021-04-23 23:14 | NUR ---
[facility] HERE FOR TRANSPORT
--- NOTE | 2021-04-24 02:37 | NUR ---
RETURNED FROM [facility]
--- NOTE | 2021-04-24 03:25 | NUR ---
FIELDS PLACED TOLERATED FAIR.
--- NOTE | 2021-04-24 03:59 | NUR ---
Admission Note Report Given to: EDWARD MANCUSO Transported by: Wheelchair X Stretcher Transported with: X Nurse Transporter X Patent IV O2 X Reprographics Associate Location: ICU X MS2
--- NOTE | 2021-04-24 04:11 | NUR ---
TO FLOOR VIA STRETCHER
--- NOTE | 2021-04-24 04:14 | NUR ---
PT RECEIVED FROM ED TO ROOM 280. ARRIVES VIA STRETCHER ACCOMPANIED BY YULIET LEON. PT NON-AMBULATORY TO BED. PT CONSIDERED TOTAL CARE. BED ALARM ACTIVATED. CLIENT SERVICES DIRECTOR IS BEDSIDE.
[2021-04-24 04:30] VITALS: BP 182/81
--- NOTE | 2021-04-24 04:30 | NUR ---
PT HAS DEMENTIA; ED REPORT THAT PT DAUGHTER STATE THAT HER MOTHER IS MUCH MORE CONFUSED THEN USUAL;PT IS NON-VERBAL. SITTER HAS BEEN PLACED BEDSIDE. RESPIRATIONS ARE NORMAL. HEART RHYTHM IS AFIB/PACED PER ED. BOWEL SOUNDS ARE ACTIVE, LAST REPORTED BM 04/23/21. RADIAL AND PEDAL PULSES ARE STRONG WITH NORMAL CPAILLARY REFILL. #20 IN [place]; SITE APPEARS HEALTHY AND PATENT. ALL SAFETY PRECAUTIONS ARE IN PLACE. WILL CONTINUE TO MONITOR.
--- NOTE | 2021-04-24 04:53 | NUR ---
PT RECEIVED FROM ED TO ROOM 280. ARRIVES VIA STRETCHER ACCOMPANIED BY YULIET LEON. PT NON-AMBULATORY TO BED. PT CONSIDERED TOTAL CARE. BED ALARM ACTIVATED. MANUFACTURING INDUSTRIAL ENGINEER IS BEDSIDE.
[2021-04-24 08:03] VITALS: BP 175/86
--- NOTE | 2021-04-24 09:10 | NUR ---
PT SEEN RESTING IN THE BED WITH EYES CLOSED, SHE DOES OPEN EYES WITH VERBAL REQUESTS, BUT DOES NOT APPEAR TO FOCUS WELL. PT DOES NOT VERBALIZE MUCH. BREAKFAST FED TO PT BY ANALYSIS INTERNSHIP WHO IS ALSO HER SITTER.
--- NOTE | 2021-04-24 09:58 | NUR ---
PT SEEN AT REST IN THE BED WITH SITTER AT BEDSIDE. LUNGS CLEAR, RA. FIELDS CATHETER IN PLACE. PT DOES NOT RESPOND APPROPRIATELY, JUST LOOKING AT SPEAKER. PT WAS FED BREAKFAST, BUT DID NOT TAKE IN MORE THAN THAT, UNABLE TO GET MEDS INTO HER WITHOUT HER SPITTING THEM OUT. WILL ATTEMPT LATER. NO ATTEMPTS TO GET OOB NOTED.
[2021-04-24 10:38] VITALS: BP 145/67
--- NOTE | 2021-04-24 13:00 | NUR ---
PATIENT WAS UP IN CHAIR FOR A COUPLE OF HOURS 1045 TO 1300.STAFF, AND NURSE PUT PATIEN BACK IN BED AT 1300.
--- NOTE | 2021-04-24 13:44 | NUR ---
PT IN ROOM, NO DISTRESS. PT CONTINUES WITH 4 LPM NC AT HOME.
--- NOTE | 2021-04-24 13:48 | NUR ---
PT FINALLY TOOK HER AM MEDS WITH PUDDING. SHE SWALLOWS WELL WITHOUT COUGHING OR CHOKING. SITTER REMAINS AT BEDSIDE. PT WAS HELPED TO CHAIR TODAY AND IS NOW BACK IN THE BED RESTING QUIETLY.
[2021-04-24 14:14] VITALS: BP 132/67
--- NOTE | 2021-04-24 16:27 | NUR ---
PT SEEN AT REST IN THE BED IN NO DISTRESS. SHE DOES HAVE SLEEP APNEA, SEEN WITH SHALLOWER RESPIRATIONS UNTIL SHE PAUSES AND GASPS FOR AIR. NO ATTEMPTS TO GET OOB OR PULL AT TUBES
[2021-04-24 19:50] VITALS: BP 154/86
--- NOTE | 2021-04-24 22:32 | NUR ---
PATIENT CURRENTLY RESTING IN BED WITH EYES CLOSED. RESPIRATIONS EASY ON ROOM AIR. ON TELEMETRY RUNNING PACED 78 BPM AT 2000. NO PAIN OBSERVED. VAD #20 RIGHT WRIST SALINE LOCKED WITH DRESSING CLEAN DRY AND INTACT WITH A SLEEVE OVER FOR PROTECTION. BOWEL SOUNDS ACTIVE ALL FOUR QUADRANTS. PEDAL PULSES +2 BILATERALLY. FIELDS CATHETER DRAINING YELLOW URINE TO GRAVITY. PATENT. FALL PRECAUTIONS IN PLACE. SITTER/THIS NURSE AT BEDSIDE FOR SAFETY. COREG 25 MG PO GIVEN THIS EVENING CRUSHED SCHEDULED FOR HTN. BED IN LOW POSITION. CALL LIGHT WITHIN REACH.
[2021-04-24 23:49] VITALS: BP 154/87
[2021-04-25 04:00] VITALS: BP 121/73
[2021-04-25 05:38] LABS: HEMATOCRIT 33.9 % (37.0-47.0); HEMOGLOBIN 10.8 g/dl (12.0-16.0); IMMATURE GRANULOCYTES 0.2 % (0.0-5.0); MEAN CELL VOLUME 82.5 fL CALC (80.0-100.0); MEAN CORPUSCULAR HGB 26.3 pG CALC (26.0-32.0); MEAN CORPUSCULAR HGB CONC 31.9 g/dL CAL (32.0-36.0); NEUT# 2.24 thou/uL (2.00-7.15); RED BLOOD COUNT 4.11 mill/uL (4.20-5.60); RED CELL DISTRI WIDTH 13.5 % (11.5-15.5)
[2021-04-25 05:47] LABS: ALBUMIN 3.3 g/dL (3.2-5.0); BILIRUBIN, TOTAL 0.4 mg/dL (0.0-1.4); CREATININE 1.1 mg/dL (0.5-1.0); POTASSIUM 3.6 mmol/l (3.5-5.1); TOTAL PROTEIN 6.3 g/dL (6.3-8.2)
--- NOTE | 2021-04-25 06:30 | NUR ---
PT TOTAL OUTPUT FOR 12 HOUR SHIFT WAS 250 ML DARK BRENDAN URINE. WAS REPORTED BY CAN THAT PATIENT DID NOT EAT DINNER LAST NIGHT. PATIENT DID NOT DRINK WELL FOR THIS NURSE LAST NIGHT EITHER. NOTIFIED PROVIDER OF OUTPUT.
--- NOTE | 2021-04-25 07:30 | NUR ---
RESTING IN THE BED, ALERT TO NAME, NONE VERBAL AT THIS TIME. REORIENTED TO PLACE TIME AND EVENT. IV INFUSING. TELE IN PLACE. FIELDS TO BEDSIDE DRAINAGE. TEDS PLACED ON THE PT. DUE TO PT NOT FOLLOWING COMMANDS AT THIS TIME. UNABLE TO COMPLETE A FULL ASSESSMENT. REPOSITIONED FOR COMFORT, SIDE RAILS UP CALL LIGHT IN REACH BED LOCKED IN LOW POSITION, WILL CONTINUE TO MONIOTR THE PATIENT. NO DISTRESS NOTED AT THIS TIME.
[2021-04-25 08:00] VITALS: BP 132/70
--- NOTE | 2021-04-25 10:03 | NUR ---
HYGINE AND FIELDS CATH CARE GIVEN TO THE PT. PT CALM ALERT TO SELF. NO DISTRESS NOTED AT THIS TIME. SIDE RAILS UP CALL LIGHT IN REACH, BED LOCKED IN LOW POSITION, ALL SAFTY MEASURES IN PLACE. WILL CONTINUE TO MONIOTR THE PATIENT.
--- NOTE | 2021-04-25 10:37 | NUR ---
OUT OF THE BED TO THE BEDSIDE CHAIR WITH ASST OF TWO. IV INFUSING, CALL LIGHT IN REACH, PT REMAINS CALM , NO DISTRESS NOTED. SITTER AT THE BEDSIDE. WILL CONTINUE TO MONIOTR THE PATIENT.
[2021-04-25 10:47] LABS: INTERNATIONAL NORMALIZED RATIO 2.1 RATIO (0.7-1.3); PROTHROMBIN TIME 21.2 SECONDS (9.0-12.5)
--- NOTE | 2021-04-25 12:03 | NUR ---
ATTEMPTED TO FEED PT HER LUNCH, PT PUSHING HER FOOD OUT WITH HER TOUNGE. WILL ATTEMP AGAIN. CALL LIGHT IN REACH, NO DISTRESS NOTED AT THIS TIME.
--- NOTE | 2021-04-25 14:11 | NUR ---
PT RESTING COMOFRTABLE NO DISTRESS NOTED AT TYHIS TIME.
[2021-04-25 16:02] VITALS: BP 134/70
--- NOTE | 2021-04-25 16:05 | NUR ---
BACK INTO BED WITH ASST OF TWO. IV INFUSING. NO DISTRESS NOTED AT THIS TIME. REPOSITIONED FOR COMFORT, SIDE RAILS UP CALL LIGHT IN REACH BED LOCKED IN LOW POSITION, WILL CONTINUE TO MONITOR THE PATIENT.
--- NOTE | 2021-04-25 16:59 | NUR ---
VISITORS AT THE BEDSIDE , ALL QUESTIONS ANSWERED. NO COMPLAINTS VOICED AT THIS TIME.
--- NOTE | 2021-04-25 18:10 | NUR ---
REFUSED HER DINNER. REPOSITIOEND . CALL LIGHT IN REACH. SITTER AT THE BEDSIDE FOR SAFTY. NO DISTRESS NOTED AT THIS TIME.
[2021-04-25 19:21] VITALS: BP 170/82
--- NOTE | 2021-04-25 20:00 | NUR ---
PHYSICAL ASSESMENT COMPLETE. PT CURRENTLY DOES NOT APPEAR TO BE IN PAIN OR DISCOMFORT. SCHEDULED MEDICATIONS AND PRN MEDICATION ADMINISTERED, SEE E-MAR. PT IS NON-VERBAL. DYE TUB TENDER IS BEDSIDE. ITEMS WITHIN REACH, BED LOCKED IN LOW POSITION W/ BEDRAILS UP X2. CALL KIM WITHIN REACH, AGREES TO CALL PRN.
[2021-04-25 23:58] VITALS: BP 140/85
[2021-04-26] VITALS (7 sets, daily range): BP systolic 134–179; BP diastolic 62–80
--- NOTE | 2021-04-26 | NUR ---
PT LAYING IN BED WITH EYES CLOSED, APPEARS TO BE SLEEPING, APPEARS COMFORTABLE AND IN NO DISTRESS. SITTER IS BEDSIDE. RESPIRATIONS REGULAR AND UNLABORED. ITEMS REMAIN WITHIN REACH, CALL KIM REMAINS WITHIN REACH. BED REMAINS LOCKED AND IN LOW POSITION WITH BEDRAILS UP X2. WILL CONTINUE TO MONITOR.
--- NOTE | 2021-04-26 04:25 | NUR ---
PT IS SLEEPING ON AND OFF. SITTER IS BEDSIDE. PT STILL VERY CONFUSED AND TRYING TO GET OUT OF BED. REORIENTATION NEED. WILL CONTINUE TO MONITOR.
--- NOTE | 2021-04-26 07:00 | NUR ---
PT REPORT RECEIVED FROM NIGHT NURSEBARTOLOME.
--- NOTE | 2021-04-26 08:00 | NUR ---
PT WAS FOUND RESTING IN BED;PT IS ALERT, BUT CONFUSED TO PERSON, PLACE AND TIME;PT IS NON-VERBAL AT THIS TIME;VS AND ASSESSMENT WERE COMPLETED;HEART SOUNDS ARE REGULAR IN RATE AND RHYTHM;PT HAS A PACEMAKER;TELE IS IN PLACE;LUNG SOUNDS ARE CLEAR;RESPIRATIONS ARE EVEN AND UNLABORED ON RA;FIELDS CATHETER IN PLACE DRAINING CLEAR PALE YELLOW URINE;#22G IV IN RW IS RUNNING NS@75ML/HR;IV SITE APPEARS FREE OF COMPLICATIONS AT THIS TIME;PT HAS ZOILA HOSE ON WITH NO EDEMA PRESENT;PT HAS A REDDENED AREA ON BUTTOCKS NOTED;SAFETY PRECAUTIONS IN PLACE;PT HAS SITTER PRESENT WITH HER;BED IN LOWEST POSITION;WILL CONTINUE TO MONITOR.
[2021-04-26 09:09] LABS: INTERNATIONAL NORMALIZED RATIO 1.7 RATIO (0.7-1.3)
--- NOTE | 2021-04-26 12:00 | NUR ---
PT WAS FOUND RESTING IN BED WITH SITTER PRESENT;PT AROUSED TO VERBAL STIMULI, BUT IS STILL NON-VERBAL;TELE IN PLACE;FIELDS CATHETER IS DRAINING CLEAR PALE YELLOW URINE;SAFETY PRECAUTIONS IN PLACE;BED IN LOWEST POSITION;BED ALARM ON AND SITTER PRESENT;WILL CONTINUE TO MONITOR.
--- NOTE | 2021-04-26 16:00 | NUR ---
PT WAS FOUND SLEEPING IN BED;PT AROUSED TO VERBAL STIMULI;TELE IS IN PLACE;FIELDS CATHETER IS CONTINUING TO DRAIN CLEAR, PALE YELLOW URINE;#22G IV IN RW IS RUNNING NS@75ML/HR;IV SITE APPEARS FREE OF COMPLICATIONS AT THIS TIME;SAFETY PRECAUTIONS IN PLACE;SITTER AT BEDSIDE;BED IN LOWEST POSITION;WILL CONTINUE TO MONITOR.
--- NOTE | 2021-04-26 19:04 | NUR ---
REPORT FROM PETER LEON. ASSUMED PT CARE.
--- NOTE | 2021-04-26 19:19 | NUR ---
PT NOTED RESTING IN BED. ALERT TO VERBAL STIMULI BUT NONVERBAL. NO APPARENT DISTRESS NOTED. RESPIRATIONS EVEN AND UNLABORED. GAS PLANT SPECIALIST IN PLACE. IV SITE APPEARS HEALTH WITH IVF INFUSING. SITTER AT BEDSIDE FOR SAFETY. CALL LIGHT WITHIN REACH. WILL CONTINUE TO MONITOR.
--- NOTE | 2021-04-26 23:12 | NUR ---
PT REPOSITIONED IN BED. INCONTINENT OF STOOL, RACHEL AND FIELDS CATHETHER CARE PROVIDED. PT TOLERATED WELL. MEDICATED WITH PRN APAP FOR FACIAL GRIMACING WHILE TURNING AND REPOSITIONING. BP ELEVATED, WILL CONTINUE TO MONITOR AND RECHECK. CALL LIGHT WITHIN REACH AND SITTER PRESENT IN ROOM. IVF INFUSING WITHOUT DIFFICULTY.
--- NOTE | 2021-04-27 02:24 | NUR ---
PT RESTING IN BED WITH EYES CLOSED. NO APPARENT DISTRESS NOTED. FIELDS PATENT DRAINING TO GRAVITY. IVF INFUSING WITHOUT DIFFICULTY. CALL LIGHT WITHIN REACH. SITTER REMAINS AT BEDSIDE. WILL CONTINUE TO MONITOR.
[2021-04-27 04:00] VITALS: BP 155/74
[2021-04-27 05:53] LABS: INTERNATIONAL NORMALIZED RATIO 1.7 RATIO (0.7-1.3); PROTHROMBIN TIME 17.1 SECONDS (9.0-12.5)
[2021-04-27 06:53] LABS: HEMATOCRIT 35.3 % (37.0-47.0); HEMOGLOBIN 11.3 g/dl (12.0-16.0); IMMATURE GRANULOCYTES 0.7 % (0.0-5.0); MEAN CELL VOLUME 83.1 fL CALC (80.0-100.0); MEAN CORPUSCULAR HGB 26.6 pG CALC (26.0-32.0); NEUT# 2.23 thou/uL (2.00-7.15); RED BLOOD COUNT 4.25 mill/uL (4.20-5.60); RED CELL DISTRI WIDTH 13.8 % (11.5-15.5)
[2021-04-27 07:04] LABS: ANION GAP 9 (6-22 (CALC)); BUN 11 mg/dL (8-23); BUN/CREATININE RATIO 13 (12-20 (CALC)); CARBON DIOXIDE 25 mmol/l (22-30); CHLORIDE 104 mmol/l (95-108); CREATININE 0.8 mg/dL (0.5-1.0); GFR > 60 ML/MIN (>=60 (CALC)); GFR FOR AFR.AMER. > 60 ML/MIN (>=60 (CALC)); POTASSIUM 3.9 mmol/l (3.5-5.1); SODIUM 134 mmol/l (137-146)
[2021-04-27 07:30] VITALS: BP 152/64
--- NOTE | 2021-04-27 07:30 | NUR ---
PATIENT LAYING IN BED AT THIS TIME WITH SITTER AT BED SIDE PATIENT IS ALERT TO SPONTANEOUS VOICE BUT IS NON COMMUNITCATE. PATIENT WILL SQUEEZE HANDS WHEN ASKED. FIELDS CATH PATENT AND DRAINING PALE YELLOW URINE AT THIS TIME. SIDERAILS ARE UP X 2 CALL LIGHT IS WITHIN REACH. LUNG GIBBONS ARE CLEAR GLOBAL TRANSPORTATION MANAGER DONE SEE INTERVENTIONS.
[2021-04-27 09:08] VITALS: BP 152/64
[2021-04-27] MEDS ORDERED: CIPROFLOXACN500 MG PO (09:22)
--- NOTE | 2021-04-27 10:21 | NUR ---
PATIENT D/C AT THIS TIME. FIELDS REMOVED AND IV REMOVED. DAUGHTER IN ROOM AT THIS TIME AND VERBALIZES UNDERSTANDING OF D/C INSTRUCTION.
--- NOTE | 2021-04-27 10:30 | NUR ---
Discharge instructions given. Patient verbalizes understanding of same. Discharged in stable condition via Wheelchair to Home with family. All belongings sent with pt.
== END 2021-04-27 10:30 | disposition home or self-care (01) ==
LOC: ED 14:33 → ED-I 04-24 02:03 → ED 04-24 03:41 → MS2 04-24 03:42
PROVIDERS: Internal Medicine; ADMIT Internal Medicine; ATTEND Internal Medicine
PROC: 0T9B70Z Drainage of Bladder with Drainage Device, Via Natural or Artificial Opening (ICD-10-PCS; principal; 2021-04-24)
DX: N39.0 Urinary tract infection, site not specified (principal); G92 Toxic encephalopathy; F03.90 Unspecified dementia, unspecified severity, without behavioral disturbance, psychotic disturbance, mood disturbance, and anxiety; I10 Essential (primary) hypertension; J44.9 Chronic obstructive pulmonary disease, unspecified; I48.91 Unspecified atrial fibrillation; I25.10 Atherosclerotic heart disease of native coronary artery without angina pectoris; E78.5 Hyperlipidemia, unspecified; D63.8 Anemia in other chronic diseases classified elsewhere; F32.9 Major depressive disorder, single episode, unspecified; E87.6 Hypokalemia; K21.9 Gastro-esophageal reflux disease without esophagitis; F41.9 Anxiety disorder, unspecified; H91.90 Unspecified hearing loss, unspecified ear; B96.1 Klebsiella pneumoniae [K. pneumoniae] as the cause of diseases classified elsewhere; Z95.0 Presence of cardiac pacemaker; Z91.81 History of falling; Z95.5 Presence of coronary angioplasty implant and graft; Z99.3 Dependence on wheelchair; Z88.0 Allergy status to penicillin; Z79.01 Long term (current) use of anticoagulants; Z86.73 Personal history of transient ischemic attack (TIA), and cerebral infarction without residual deficits; Z20.822 Contact with and (suspected) exposure to COVID-19
CPT/HCPCS: G0378; J1956; J2060

== ENCOUNTER 2021-05-11 11:29 | Emergency (ER) | payer MEDICARE, MEDICAID ==
[~2021-05-11] VITALS: Ht 147.3 cm; Wt 71.0 kg
[~2021-05-11 11:29] MED LIST changes: +BUSPIRONE HYDR7.5 MG PO; +CARVEDILOL25 MG PO; +K-TABS10 MEQ PO; +OMEPRAZOLE DR40 MG PO; +SERTRALINE50 MG PO; +WARFARIN2 MG PO
[2021-05-11 12:05] LABS: HEMATOCRIT 37.3 % (37.0-47.0); HEMOGLOBIN 11.4 g/dl (12.0-16.0); IMMATURE GRANULOCYTES 0.3 % (0.0-5.0); MEAN CORPUSCULAR HGB CONC 30.6 g/dL CAL (32.0-36.0); NEUT# 4.91 thou/uL (2.00-7.15); RED BLOOD COUNT 4.39 mill/uL (4.20-5.60); RED CELL DISTRI WIDTH 13.7 % (11.5-15.5)
[2021-05-11 12:23] LABS: PROTHROMBIN TIME 23.1 SECONDS (9.0-12.5)
[2021-05-11 12:24] LABS: INTERNATIONAL NORMALIZED RATIO 2.3 RATIO (0.7-1.3)
[2021-05-11 12:28] LABS: ALBUMIN 3.7 g/dL (3.2-5.0); ALKALINE PHOSPHATASE 74 u/l (38-126); AMYLASE 53 u/l (30-110); ANION GAP 14 (6-22 (CALC)); BILIRUBIN, TOTAL 0.3 mg/dL (0.0-1.4); BUN 15 mg/dL (8-23); BUN/CREATININE RATIO 16 (12-20 (CALC)); CARBON DIOXIDE 27 mmol/l (22-30); CHLORIDE 101 mmol/l (95-108); CREATININE 0.9 mg/dL (0.5-1.0); GFR 60 ML/MIN (>=60 (CALC)); GFR FOR AFR.AMER. > 60 ML/MIN (>=60 (CALC)); LIPASE 160 u/l (23-300); MAGNESIUM 1.8 mg/dL (1.6-2.3); POTASSIUM 3.5 mmol/l (3.5-5.1); SGOT/AST 28 u/l (9-36); SODIUM 137 mmol/l (137-146); TOTAL PROTEIN 6.8 g/dL (6.3-8.2)
[2021-05-11 12:51] VITALS: BP 143/71
[2021-05-11 13:20] LABS: URINE BILIRUBIN - DIPSTICK NEGATIVE (NEGATIVE); URINE BLOOD DIPSTICK NEGATIVE (NEGATIVE); URINE COLOR YELLOW; URINE GLUCOSE - DIPSTICK NEGATIVE (NEGATIVE); URINE KETONE NEGATIVE (NEGATIVE); URINE LEUK ESTERASE NEGATIVE (NEGATIVE); URINE PROTEIN - DIPSTICK NEGATIVE (NEG-TRACE); URINE UROBILINOGEN - DIPSTICK 0.2 E.U./dL (0.2)
[2021-05-11 13:23] LABS: URINE NITRITE - DIPSTICK NEGATIVE (Negative)
== END 2021-05-11 12:52 | disposition short-term general hospital (02) ==
LOC: ED 11:29
PROC: 0T9B70Z Drainage of Bladder with Drainage Device, Via Natural or Artificial Opening (ICD-10-PCS; principal; 2021-05-11)
DX: I63.9 Cerebral infarction, unspecified (principal); R40.4 Transient alteration of awareness; H55.00 Unspecified nystagmus; R56.9 Unspecified convulsions; R15.9 Full incontinence of feces; F03.90 Unspecified dementia, unspecified severity, without behavioral disturbance, psychotic disturbance, mood disturbance, and anxiety; I69.351 Hemiplegia and hemiparesis following cerebral infarction affecting right dominant side; I69.320 Aphasia following cerebral infarction; I10 Essential (primary) hypertension; I48.91 Unspecified atrial fibrillation; F32.9 Major depressive disorder, single episode, unspecified; K21.9 Gastro-esophageal reflux disease without esophagitis; E78.00 Pure hypercholesterolemia, unspecified; I42.9 Cardiomyopathy, unspecified; J44.9 Chronic obstructive pulmonary disease, unspecified; D63.8 Anemia in other chronic diseases classified elsewhere; I25.10 Atherosclerotic heart disease of native coronary artery without angina pectoris; Z91.81 History of falling; Z95.0 Presence of cardiac pacemaker; Z79.01 Long term (current) use of anticoagulants; Z20.822 Contact with and (suspected) exposure to COVID-19
CPT/HCPCS: Q9967

== ENCOUNTER 2021-05-17 10:33 | Inpatient (IN) | payer MEDICARE, MEDICAID ==
[~2021-05-17] VITALS: Ht 147.3 cm; Wt 77.0 kg
--- NOTE | 2021-05-17 10:35 | NUR ---
TO ROOM VIA EMS, SEIZURE PRECAUTIONS INITIATED. MD AT BEDSIDE FOR TRIAGE.
[2021-05-17 11:04] LABS: HEMATOCRIT 36.7 % (37.0-47.0); HEMOGLOBIN 11.6 g/dl (12.0-16.0); MEAN CELL VOLUME 85.3 fL CALC (80.0-100.0); MEAN CORPUSCULAR HGB CONC 31.6 g/dL CAL (32.0-36.0); NEUT# 1.65 thou/uL (2.00-7.15); RED BLOOD COUNT 4.3 mill/uL (4.20-5.60); RED CELL DISTRI WIDTH 13.9 % (11.5-15.5)
[2021-05-17 11:22] LABS: ALBUMIN 3.9 g/dL (3.2-5.0); BILIRUBIN, TOTAL 0.3 mg/dL (0.0-1.4); CREATININE 1.2 mg/dL (0.5-1.0); MAGNESIUM 1.7 mg/dL (1.6-2.3); TOTAL PROTEIN 7.4 g/dL (6.3-8.2)
[2021-05-17 11:26] LABS: POTASSIUM 4.3 mmol/l (3.5-5.1)
[2021-05-17 12:33] LABS: PROTHROMBIN TIME 16.4 SECONDS (9.0-12.5)
[2021-05-17 12:34] LABS: INTERNATIONAL NORMALIZED RATIO 1.6 RATIO (0.7-1.3)
--- NOTE | 2021-05-17 12:35 | NUR ---
PT RESTING COMFORTABLY, SEIZURE PADS IN PLACE, VSS, 2LNC DUE TO O2 GOING DOWN TO 90%, PT NOW 98%
[2021-05-17 12:41] LABS: URINE BILIRUBIN - DIPSTICK NEGATIVE (NEGATIVE); URINE BLOOD DIPSTICK MODERATE (NEGATIVE); URINE COLOR YELLOW; URINE GLUCOSE - DIPSTICK NEGATIVE (NEGATIVE); URINE KETONE NEGATIVE (NEGATIVE); URINE LEUK ESTERASE NEGATIVE (NEGATIVE); URINE PH 5.5 (4.5-8.0); URINE PROTEIN - DIPSTICK NEGATIVE (NEG-TRACE); URINE SPECIFIC GRAVITY >=1.030; URINE UROBILINOGEN - DIPSTICK 0.2 E.U./dL (0.2)
[2021-05-17 12:44] LABS: URINE NITRITE - DIPSTICK NEGATIVE (Negative)
[2021-05-17 12:55] LABS: URINE SQUAMOUS EPITHELIAL CELL FEW EPI/hpf (0-FEW)
--- NOTE | 2021-05-17 13:00 | NUR ---
COVID POS. FAMILY AWARE, PT PUT ON AIRBOURNE PRECAUTIONS
--- NOTE | 2021-05-17 15:00 | NUR ---
SBAR PRINTED TO FLOOR
[2021-05-17 16:20] VITALS: BP 188/73
--- NOTE | 2021-05-17 16:20 | NUR ---
PT TO ICU BED 8 NEGIN STRETCHER ACCOMPANIED BY ER NURSE. PT TRANSFERRED TO BED MAX ASSIST X4. PT IS ALERT NOT ORIENTED. PT MUMBLES WORDS THAT ARE INCOMPREHENSIBLE. ER NURSE STATES THAT FAMILYS SAYS THIS IS NORMAL FOR PATIENT. ADMISSION ASSESSMENT COMPLETED AT THIS TIME. IV PATENT X1. ATIVAN GIVEN PER MD ORDER AND MAR. WILL CONTINUE TO MONITOR CLOSELY.
--- NOTE | 2021-05-17 16:53 | NUR ---
Juan Antonio HOYT APRN AT BEDSIDE AT THIS TIME.
[2021-05-17 17:00] VITALS: BP 188/73
[2021-05-17 18:00] VITALS: BP 178/70
[2021-05-17 19:16] LABS: C-REACTIVE PROTEIN 2.3 mg/dL (0-0.9)
[2021-05-17 20:00] VITALS: BP 177/67
--- NOTE | 2021-05-17 20:00 | NUR ---
RESTING IN BED WITH EYES CLOSED. NON-VERBAL. DOES NOT FOLLOW COMMANDS. SQUINTS EYES TIGHT WHEN ASKED TO OPEN EYES. ARMS FLEXED BUT ABLE TO EXTEND. LEGS DRAWN UP IN POSITION. TURNED AND REPOSITIONED, SKIN ON BACK AND BOTTOM INTACT. RESP NON-LABORED. LUNGS CLEAR THROUGHOUT. O2 ON AT 1 L NC. O2 SAT 96-98% IV IN RFA SITE BENIGN, NS INFUSING AT 75 ML/HR. CASH TELLER SHOWS PACED RHYTHM, UNDELYING AFIB. EXPLAINED PLAN OF CARE.
--- NOTE | 2021-05-17 21:15 | NUR ---
PATIENT DAUGHTER BYRON CALLED, UPDATE ON CONDITION GIVEN BY Gianluca KILLIAN/EDWARD.
[2021-05-17 22:00] VITALS: BP 172/82
--- NOTE | 2021-05-17 22:00 | NUR ---
TURNED AND REPOSITIONED. OPENS EYES AT THIS TIME. MOVES ARMS AND FEET. VSS. RESP NON-LABORED.
[2021-05-18] VITALS (12 sets, daily range): BP systolic 129–183; BP diastolic 49–88
--- NOTE | 2021-05-18 00:05 | NUR ---
TURNED AND REPOSITIONED. OCC OPENS EYES. DOES NOT FOLLOW COMMANDS. IV INFUSING WITHOUT INCIDENT. PACED RHTYM ON MONITOR WITH UNERLYING AFIB.
--- NOTE | 2021-05-18 02:00 | NUR ---
REPOSITIONED. NO CHANGES TO REPORT. VSS.
--- NOTE | 2021-05-18 04:00 | NUR ---
OCCASSIONAL EYE OPENING TO NAME. ABLE TO MOVE ALL EXTREMITIES. TURNED AND REPOSITIONED.
--- NOTE | 2021-05-18 06:00 | NUR ---
COMPLETE BED BATH GIVEN. ORAL CARE PROVIDED WITH TOOTHETTES AND LIP MOISTURIZER APPLIED. PARTIAL LINEN CHANGE. HEEL PROTECTERS APPLIED TO FEET. SKIN TEAR TO RIGHT CHEUNG STEEPING PRESS OPERATOR, OTHERWISE SKIN IS INTACT. VSS. RESP NON-LABORED. O2 SAT IN UPPER 90'S., DC'D O2 AT THIS TIME.
--- NOTE | 2021-05-18 06:45 | NUR ---
REPORT RECEIVED FROM PAYAL LEON. CARE ASSUMED.
[2021-05-18 06:52] LABS: ANION GAP 11 (6-22 (CALC)); BUN 11 mg/dL (8-23); BUN/CREATININE RATIO 11 (12-20 (CALC)); CARBON DIOXIDE 22 mmol/l (22-30); CHLORIDE 104 mmol/l (95-108); GFR 53 ML/MIN (>=60 (CALC)); GFR FOR AFR.AMER. > 60 ML/MIN (>=60 (CALC)); MAGNESIUM 1.7 mg/dL (1.6-2.3); POTASSIUM 3.8 mmol/l (3.5-5.1); SODIUM 134 mmol/l (137-146)
[2021-05-18 06:58] LABS: HEMATOCRIT 34.2 % (37.0-47.0); HEMOGLOBIN 10.7 g/dl (12.0-16.0); MEAN CELL VOLUME 85.7 fL CALC (80.0-100.0); MEAN CORPUSCULAR HGB 26.8 pG CALC (26.0-32.0); MEAN CORPUSCULAR HGB CONC 31.3 g/dL CAL (32.0-36.0); RED BLOOD COUNT 3.99 mill/uL (4.20-5.60)
--- NOTE | 2021-05-18 07:20 | NUR ---
PT RESTING IN BED WITH EYES CLOSED. PT IS NON VERBAL. UNABLE TO ASSESS ORIENTATION STATUS. PT CLENCHES EYES SHUT WHEN ASKED QUESTIONS. PT PULLS AGAINST EQUIPMENT WHEN TRYING TO ADJUST. IV PATENT X1. CALL LGT IN REACH. WILL CONTINUE TO MONITOR.
--- NOTE | 2021-05-18 07:45 | NUR ---
OFERRED PATIENT AM MEAL. PATIENT REFUSES TO OPEN EYES OR MAKE ANY ACKNOWLEDGEMENT OF NURSE TRYING TO FEED.
--- NOTE | 2021-05-18 08:45 | NUR ---
DR BULL AT BEDSIDE TO SEE PATIENT. DR BULL ATTEMPTED TO PHONE DAUGHTER YARA. NO ANSWER AND UNABLE TO LEAVE VOICEMAIL.
--- NOTE | 2021-05-18 09:00 | NUR ---
TRIED TO MEDICATED PT. PT UNABLE TO FOLLOW DIRECTION AND DOES NOT ACKNOWLEDGE NURSE IN ROOM.
--- NOTE | 2021-05-18 09:38 | NUR ---
ATTEMPTED TO PHONE DAUGHTER YARA TO DISCUSS PLAN OF CARE. NO ANSWER AND UNABLE TO LEAVE VOCIEMAIL.
--- NOTE | 2021-05-18 10:30 | NUR ---
DAUGHTER YARA PHONED UNIT FOR UPDATE. UPDATE PROVIDED. DAUGHTER WANTED TO SPEAK WITH DR BULL. DR BULL NOTIFIED. DAUGHTER STATES THAT PATIENT GETS UP TO CHAIR AT HOME AND EATS REGULAR FOOD AT HOME AND SWALLOWS PILLS WHOLE AT HOME. EXPLAINED THAT PATIENT IS NOT ALERT ENOUGHFOR THAT AT THIS TIME. ASKED DAUGHTER ABOUT DC PLAN SHE WANTS PATIENT TO BE DC'D HOME. SHE WOULD LIKE TO BE GRANTED PERMISSION TO VISIT EXPLAINED THAT WAS DECIDED BY ADMINISTRATION. ONCE SHE SPEAKS WITH DR BULL WILL REACH OUT TO ADMINISTRATIONS FOR PERMISSION TO VISIT.
--- NOTE | 2021-05-18 10:53 | NUR ---
PATIENT REPOSITIONED IN BED.MOISTENED LIPS WITH TOTTHETTE ATTEMTPED TO GIVE SIP OF WATER PATIENT UNABLE TO PERFORM SIP OF WATER. PATIENT CONTINUES TO BE UNABLE TO FOLLOW ANY COMMANDS.
--- NOTE | 2021-05-18 10:57 | NUR ---
PHONED ADMINISTRATION TO REQUEST PERMISSION FOR DAUGHTER TO VISIT PATIENT.
--- NOTE | 2021-05-18 11:58 | NUR ---
COVID PCR SWAB OBTAINED PER MD ORDER PT TOLERATED WELL. PT STILL NOT ALERT ENOUGH FOR FEEDING VSS ON MONITOR. WILL CONTINUE TO MONITOR.
--- NOTE | 2021-05-18 12:15 | NUR ---
DR BULL NOTIFIED THAT PCR IS POSITIVE. DAUGHTER PHONED TO ALLOW A VISIT BUT THAT SHE WOULD HAVE TO ONLY VISIT FROM OUTSIDE OF ROOM. DAUGHTER AGREEABLE WITH STAYING OUTSIDE OF ROOM.
--- NOTE | 2021-05-18 13:08 | NUR ---
DAUGHTER ON UNIT TO SEE PATIENT OUTSIDE OF ROOM. UPDATE PROVIDED. DAUGHTER STATES THAT THIS IS FAR FROM THE NORM OF THE PATIENT.DAUGHTER WILL GO HOME TO DISCUSS WITH FAMILY.
--- NOTE | 2021-05-18 13:36 | NUR ---
PHONED D FABIOEE TO HAVE MEDS CHANGED FROM PO TO IV. ACCU CHECK OBTAINED 81
--- NOTE | 2021-05-18 16:15 | NUR ---
PT AWAKE IN ROOM. PT REPOSITIONED IN BED. PT PROVIDED APPLE JUICE AND VANILLA PUDDING. PT TOLERATED WELL. DR BULL NOTIFIED. DAUGHTER YARA NOTIFIED WELL.
--- NOTE | 2021-05-18 17:00 | NUR ---
RECORDS REQUEST FAXED TO [facility]
--- NOTE | 2021-05-18 17:30 | NUR ---
DAUGHTER RETURNS TO SEE PATIENT. PATIENT IS MORE ALERT. DAUGHTER STATES THAT PATIENT IS STILL NOT RETURNED TO BASELINE. WILL CONTINUE TO MONITOR
--- NOTE | 2021-05-18 20:00 | NUR ---
PATIENT RESTING IN BED. AWAKE, ALERT. NON-VERBAL. MOVES ALL EXTREMITIES. DOES NOT FOLLLOW COMMANDS RESP NON-LABORED. RA O2 SAT 99% BREATH SOUNDS CLEAR. FIELDS DRAINS CLEAR PALE YELLOW URINE. INCONTINENT OF LARGE AMOUNT OF BROWN LIQUID STOOL. COMPLETE BED BATH AND LINEN CHANGE DONE. TURNED AND REPOSITIONED FROM SIDE TO SIDE. IV IN RFA, SITE BENIGN, NS INFUSING AT 75 ML/HR. EXPLAINED PLAN OF CARE. CALL KIM IN REACH. CARDIA MONITOR SHOWS PACED RHYTHM.
--- NOTE | 2021-05-18 20:50 | NUR ---
PATIENT BEDOMIN GSOMEWHAT RESTLEES, PUTTING LEGS OVER SIDERAIL. REPOSITONED. MEDICATED WITH ATIVAN 1 MG IVP ORDERED.
--- NOTE | 2021-05-18 22:00 | NUR ---
RESTING QUIETLY IN BED WITH EYES CLOSED. RESP NON-LABORED. VSS.
[2021-05-19] VITALS (12 sets, daily range): BP systolic 116–180; BP diastolic 66–85
--- NOTE | 2021-05-19 | NUR ---
RESTING QUIETLY IN BED WITH EYES CLOSED. RESP NON-LABORED. VSS. PACED RHYTHM ON MONITOR.
--- NOTE | 2021-05-19 02:00 | NUR ---
NO CHANGES TO REPORT. VSS. RESP NON-LABORED.
--- NOTE | 2021-05-19 04:00 | NUR ---
NO CHANGES TO REPORT. VSS. RESP NON-LABORED.
--- NOTE | 2021-05-19 06:00 | NUR ---
SLEPT WELL. CALM AND COOPERATIVE. RESP NON-LABORED. LUNGS CLEAR. NS CONTINUES INFUSING AT 75 ML/HR.
[2021-05-19 06:32] LABS: INTERNATIONAL NORMALIZED RATIO 1.5 RATIO (0.7-1.3)
--- NOTE | 2021-05-19 06:45 | NUR ---
REPORT RECEIVED FROM PAYAL LEON. CARE ASSUMED.
--- NOTE | 2021-05-19 07:15 | NUR ---
PT RESTING IN BED WITH EYES CLOSED. PT AROUSES TO VERBAL STIMULI. PT HAS GARBLES SPEECH. UNABLE TO ASSESS ORIENTATION. IV PATENT X1. CALL LIGHT IN REACH. WILL CONTINUE TO MONITOR
[2021-05-19 07:45] LABS: HEMATOCRIT 33.8 % (37.0-47.0); HEMOGLOBIN 10.8 g/dl (12.0-16.0); IMMATURE GRANULOCYTES 0.2 % (0.0-5.0); MEAN CELL VOLUME 82.6 fL CALC (80.0-100.0); MEAN CORPUSCULAR HGB 26.4 pG CALC (26.0-32.0); NEUT# 1.87 thou/uL (2.00-7.15); RED BLOOD COUNT 4.09 mill/uL (4.20-5.60); RED CELL DISTRI WIDTH 13.7 % (11.5-15.5)
--- NOTE | 2021-05-19 08:00 | NUR ---
AM TRAY HELD DUE TO PATIENT NOT FOLLOWING COMMANDS
[2021-05-19 08:29] LABS: ALKALINE PHOSPHATASE 61 u/l (38-126); ANION GAP 11 (6-22 (CALC)); BILIRUBIN, TOTAL 0.3 mg/dL (0.0-1.4); BUN 8 mg/dL (8-23); BUN/CREATININE RATIO 10 (12-20 (CALC)); CARBON DIOXIDE 24 mmol/l (22-30); CHLORIDE 100 mmol/l (95-108); CREATININE 0.8 mg/dL (0.5-1.0); GFR > 60 ML/MIN (>=60 (CALC)); GFR FOR AFR.AMER. > 60 ML/MIN (>=60 (CALC)); POTASSIUM 3.1 mmol/l (3.5-5.1); SGOT/AST 36 u/l (9-36); SODIUM 132 mmol/l (137-146)
[2021-05-19 08:30] LABS: ALBUMIN 3.1 g/dL (3.2-5.0); TOTAL PROTEIN 5.8 g/dL (6.3-8.2)
--- NOTE | 2021-05-19 08:40 | NUR ---
DR BULL AT BEDSIDE AT THIS TIME TO DISCUSS PLAN OF CARE.
--- NOTE | 2021-05-19 10:00 | NUR ---
PT RESTING IN BED AT THIS TIME. RESP ARE EVEN AND UNLABORED. NO DISTRESS NOTED. CALL LIGHT IN REACH. WILL CONTINUE TO MONITOR.
--- NOTE | 2021-05-19 12:00 | NUR ---
PT RESTING IN BED EYES CLOSED. HELD NOON TRAY DUE TO PT NOT FOLLOWING COMMANDS. WILL CONTINUE TO MONITOR CLOSELY.
--- NOTE | 2021-05-19 14:00 | NUR ---
PT RESTING IN BED WITH EYES CLOSED. MOANS ALOUD. AROUSES TO VERBAL STIMULI. CALL LIGHT IN REACH. WILL CONTINUE TO MONITOR.
--- NOTE | 2021-05-19 16:00 | NUR ---
PT RESTING IN BED AWAKE AND PULLING AT WIRES. PT REPOSITIONED IN BED. CALL LIGHT IN REACH. WILL CONTINUE TO MONITOR.
--- NOTE | 2021-05-19 18:22 | NUR ---
FLOOR SUPERVISOR AT BEDSIDE FEEDING PATIENT. PATIENT TOLERATING WELL. CALL LIGHT IN REACH. WILL CONTINUE TO MONITOR.
--- NOTE | 2021-05-19 19:00 | NUR ---
REPORT GIVEN BY SAM. PATIENT RESTING IN BED WITH PERIODIC MOANING. RESP EVEN AND UNLABORED. PACED ON TELE. FALL AND SAFTEY PRECAUTION IN PLACE. RESPONDS TO VOICES BY LOOKING AT NURSE. OTHERWISE NOT VOALIZING ANY CONCERNS OR NEEDS. IV INFUSING KVO FLUIDS. FIELDS DRAINING TO GRAVITY.
--- NOTE | 2021-05-19 19:29 | NUR ---
PATIENT IS PACED ON TELE, UNDERLINING RHYTHM CHANGE FROM SINUS TO A-FIB. WILL OBTAIN EKG TO CONFIRM CHANGE. HEART RATE RANGING FROM 110 TO 145. WILL MEDICATE PER MD ORDERS WITH LOPRESSOR.
--- NOTE | 2021-05-19 22:55 | NUR ---
DAUGHTER UPDATED ON PATIENT
[2021-05-20] VITALS (11 sets, daily range): BP systolic 99–204; BP diastolic 49–98
--- NOTE | 2021-05-20 00:40 | NUR ---
PATIENT RESTING WITH WITH EYES CLOSED. RESP EVEN AND UNLABORED. NO S/S OF DISTRESS NOTED.
--- NOTE | 2021-05-20 04:14 | NUR ---
BEDBATH AND FULL LINEN CHANGE PERFORMED
[2021-05-20 06:18] LABS: ANION GAP 14 (6-22 (CALC)); BUN 9 mg/dL (8-23); BUN/CREATININE RATIO 11 (12-20 (CALC)); CARBON DIOXIDE 23 mmol/l (22-30); CHLORIDE 97 mmol/l (95-108); CREATININE 0.8 mg/dL (0.5-1.0); GFR > 60 ML/MIN (>=60 (CALC)); GFR FOR AFR.AMER. > 60 ML/MIN (>=60 (CALC)); MAGNESIUM 1.6 mg/dL (1.6-2.3); POTASSIUM 3.4 mmol/l (3.5-5.1); SODIUM 132 mmol/l (137-146)
--- NOTE | 2021-05-20 08:00 | NUR ---
PT RESTING IN BED, EYES CLOSED, NO S/S OF DISTRESS NOTED
--- NOTE | 2021-05-20 10:00 | NUR ---
PT RESTING IN BED, ROUNDED, UPDATED DAUGHTER ON PHONE.
--- NOTE | 2021-05-20 12:00 | NUR ---
PT RESTING IN BED, DAUGHTER AT BEDSIDE
--- NOTE | 2021-05-20 14:00 | NUR ---
PT REPOSITIONED IN BED, HOSPICE CONSULTED
--- NOTE | 2021-05-20 16:00 | NUR ---
PT ASLEEP IN BED, NO S/S OF DISTRESS NOTED
--- NOTE | 2021-05-20 18:00 | NUR ---
PT RESTING IN BED WITH EYES OPEN, VSS
--- NOTE | 2021-05-20 19:10 | NUR ---
REPORT GIVEN BY DAYSHIFT NURSE. PATIENT RESTING IN BED WITH EYES OPEN. RESPONDS TO VOICE BUT NOT SPEAKING. RESP EVEN AND UNLABORED. NO S/S OF DISTRESS NOTED. FALL AND SAFTEY PRECAUTIONS IN PLACE. FIELDS DRAINING TO GRAVITY.
--- NOTE | 2021-05-20 21:26 | NUR ---
PM MEDICATIONS GIVEN PER MD ORDERS
--- NOTE | 2021-05-20 22:30 | NUR ---
INCREASED BP AND HEARTRATE. LOPRESSOR GIVEN PER MD ORDERS.
[2021-05-21] VITALS: BP 168/85
--- NOTE | 2021-05-21 | NUR ---
PATIENT RESTING WITH EYES CLOSED. RESP EVEN AND UNLABORED. NO S/S OFDISTRESS NOTED. FALL AND SAFTEY PRECAUTIONS IN PLACE.
--- NOTE | 2021-05-21 03:00 | NUR ---
PATIENT RESTING WITH EYE CLOSED. RESP EVEN AND UNLABORED.NO S/S OF DISTRESS NOTED. FALL AND SAFTEY PRECAUTIONS IN PLACE.
[2021-05-21 04:00] VITALS: BP 138/60
--- NOTE | 2021-05-21 07:30 | NUR ---
ROUNDED ON PATIENT AFTER RECEIVING BEDSIDE REPORT. PATIENT IS STILL SLEEPING EASILY AROUSABLE. PATIENT IS NON VERBAL; DOES NOT FOLLOW COMMANDS. VS ARE WITHIN NORMAL LIMITS PACED UNDERLINE A-FIB. FALL PRECAUTIONS IN PLACE. WILL CONTINUE TO MONITOR.
[2021-05-21 07:51] LABS: HEMATOCRIT 38.4 % (37.0-47.0); HEMOGLOBIN 12.7 g/dl (12.0-16.0); IMMATURE GRANULOCYTES 0.3 % (0.0-5.0); MEAN CELL VOLUME 80.3 fL CALC (80.0-100.0); MEAN CORPUSCULAR HGB 26.6 pG CALC (26.0-32.0); MEAN CORPUSCULAR HGB CONC 33.1 g/dL CAL (32.0-36.0); NEUT# 1.35 thou/uL (2.00-7.15); RED BLOOD COUNT 4.78 mill/uL (4.20-5.60); RED CELL DISTRI WIDTH 13.3 % (11.5-15.5)
[2021-05-21 08:00] VITALS: BP 186/91
[2021-05-21 08:06] LABS: ALBUMIN 3.5 g/dL (3.2-5.0); ALKALINE PHOSPHATASE 64 u/l (38-126); ANION GAP 17 (6-22 (CALC)); BILIRUBIN, TOTAL 0.4 mg/dL (0.0-1.4); BUN 11 mg/dL (8-23); BUN/CREATININE RATIO 14 (12-20 (CALC)); CARBON DIOXIDE 21 mmol/l (22-30); CHLORIDE 98 mmol/l (95-108); CREATININE 0.8 mg/dL (0.5-1.0); GFR > 60 ML/MIN (>=60 (CALC)); GFR FOR AFR.AMER. > 60 ML/MIN (>=60 (CALC)); POTASSIUM 3.3 mmol/l (3.5-5.1); SGOT/AST 39 u/l (9-36); SODIUM 133 mmol/l (137-146); TOTAL PROTEIN 6.8 g/dL (6.3-8.2)
--- NOTE | 2021-05-21 09:15 | NUR ---
PATIENT IS REFUSING TO EAT. PATIENT DOES NOT RESPOND WHEN SPOKEN TO. PATIENT WILL NOT OPEN MOUTH TO TAKE INTAKE. PATIENT REPOSITION. WILL CONTINUE TO MONITOR.
[2021-05-21 10:00] VITALS: BP 131/60
--- NOTE | 2021-05-21 10:30 | NUR ---
PATIENT WAS ADJUSTED IN BED. PATIENTS DAUGHTER PRESENT WAITING FOR HOSPICE CONSULT IN PERSON.
--- NOTE | 2021-05-21 11:00 | NUR ---
PATIENT REPORT GIVEN TO [facility]. PATIENT IS RESTING STILL NON VERBAL. WILL CONTINUE TO MONITOR.
[2021-05-21 12:00] VITALS: BP 139/77
--- NOTE | 2021-05-21 13:00 | NUR ---
PATIENT RESTING IN BED NO CHANGE. STILL AWAITING HOSPICE RESPONSE FOR [facility] TRANSFER TO THE HOSPICE HOUSE. FAMILY IS AWARE OF SITUATION. WILL CONTINUE TO MONITOR. PATIENT IS STILL REFUSING TO EAT.
--- NOTE | 2021-05-21 15:01 | NUR ---
BRITNI INFORMED RN OF APPROVAL TO TRANSFER PATIENT TO HOSPICE HOUSE IN [place]. ASK TO LEAVE IV AND FIELDS CATHETER IN PLACE PER HOSPICE. AWAITING FOR TIME OF [facility]INO DEALER FROM [facility].
[2021-05-21 15:52] VITALS: BP 142/72
--- NOTE | 2021-05-21 16:08 | NUR ---
daughter Arianne Mosher called per conventional underwriter; daughter informed of transfer to [facility]; questions answered; daughter express appreciation of care;
--- NOTE | 2021-05-21 16:09 | NUR ---
PATIENT IS STABLE STILL NONVERBLE. PATIENT PICKED UP BY [facility]. FAMILY WAS INFORMED OF SIDE PULLER. GOING TO HOSPICE HOUSE IN [place].
== END 2021-05-21 16:15 | disposition hospice, inpatient (51) | DRG 100 ==
LOC: ED 10:33 → ED-I 14:10 → ED 14:27 → ICU 14:28
PROVIDERS: Family Medicine; Nurse Practitioner; ADMIT Internal Medicine; ATTEND Internal Medicine
PROC: 0T2BX0Z Change Drainage Device in Bladder, External Approach (ICD-10-PCS; principal; 2021-05-17)
DX: G40.409 Other generalized epilepsy and epileptic syndromes, not intractable, without status epilepticus (principal); G92 Toxic encephalopathy; U07.1 COVID-19; I42.9 Cardiomyopathy, unspecified; E87.2 Acidosis; N17.9 Acute kidney failure, unspecified; T42.4X5A Adverse effect of benzodiazepines, initial encounter; I48.91 Unspecified atrial fibrillation; I10 Essential (primary) hypertension; E78.5 Hyperlipidemia, unspecified; J44.9 Chronic obstructive pulmonary disease, unspecified; I25.10 Atherosclerotic heart disease of native coronary artery without angina pectoris; D63.8 Anemia in other chronic diseases classified elsewhere; F32.9 Major depressive disorder, single episode, unspecified; F41.9 Anxiety disorder, unspecified; K21.9 Gastro-esophageal reflux disease without esophagitis; F03.90 Unspecified dementia, unspecified severity, without behavioral disturbance, psychotic disturbance, mood disturbance, and anxiety; S81.811A Laceration without foreign body, right lower leg, initial encounter; X58.XXXA Exposure to other specified factors, initial encounter; Z66 Do not resuscitate; Z86.73 Personal history of transient ischemic attack (TIA), and cerebral infarction without residual deficits; Z95.0 Presence of cardiac pacemaker; Z79.01 Long term (current) use of anticoagulants; Z91.81 History of falling; Z95.5 Presence of coronary angioplasty implant and graft
CPT/HCPCS: J1650; J1953; J2060; S0164